=== PATIENT | male | born 1955 | race Caucasian/White ===

== ENCOUNTER 2020-01-27 08:58 | Day surgery (SDC) | payer MEDICARE, OTHER, SELFPAY ==
[2020-01-25 19:50] VITALS: BMI 32.8
--- NOTE | 2020-01-26 08:42 | P.CONAN_ITS ---
Documented by User: Katt Padilla 01/26/20 08:43 HPI - Anesthesia Eval Consult details Narrative: 64yo M for L inguinal hernia repair [facility], [facility] Past Medical History Medical History Arthritis Back pain GERD (gastroesophageal reflux disease) Hypertension Surgical History Surgical History History of right inguinal hernia repair (~2015) Social History Social History (Updated 01/27/20 @ 09:53 by Sara Rodriguez RN) Smoking Status: Never smoker Second Hand Smoke Exposure: No Use of substances other than those prescribed or required for medical reasons: No Advance Directives: No Advance Directives Information Provided: No Advance Directives on File: No Recently lost weight without trying: No Meds Allergies Allergy/AdvReac Type Severity Reaction Status Date / Time codeine [CODEINE] Allergy Intermediate FELT Verified 01/27/20 09:52 WEIRD Home Medications Medication Instructions Recorded Confirmed Type amlodipine-benazepril 1 cap PO DAILY 01/25/20 01/25/20 History celecoxib 1 cap PO DAILY 01/25/20 01/25/20 History lansoprazole [Prevacid] 15 mg PO DAILY 01/25/20 01/27/20 History minocycline 1 cap PO DAILY 01/25/20 01/25/20 History Exam Exam Date and Time: January 26, 2020 0842 Height,Weight and Vital Signs: Height 5 ft 11 in Weight 106.594 kg Assessment and Plan Assessment Anesthesia Assessment: Chart Reviewed Documented by User: Hafsa Dave 01/27/20 11:45 [facility] Past Medical History Medical History Arthritis Back pain GERD (gastroesophageal reflux disease) Hypertension Surgical History Surgical History History of right inguinal hernia repair (~2015) Social History Social History (Updated 01/27/20 @ 09:53 by Sara Rodriguez RN) Smoking Status: Never smoker Second Hand Smoke Exposure: No Use of substances other than those prescribed or required for medical reasons: No Advance Directives: No Advance Directives Information Provided: No Advance Directives on File: No Recently lost weight without trying: No Meds Allergies Allergy/AdvReac Type Severity Reaction Status Date / Time codeine [CODEINE] Allergy Intermediate FELT Verified 01/27/20 09:52 WEIRD Home Medications Medication Instructions Recorded Confirmed Type amlodipine-benazepril 1 cap PO DAILY 01/25/20 01/25/20 History celecoxib 1 cap PO DAILY 01/25/20 01/25/20 History lansoprazole [Prevacid] 15 mg PO DAILY 01/25/20 01/27/20 History minocycline 1 cap PO DAILY 01/25/20 01/25/20 History Exam Airway Mallampati Class: I (Top 3 teeth have caps) TM Dist: >3cm Neck ROM: Full Heart: RrR Lungs: CtA Bl Assessment and Plan Final Anesthetic Review NPO: Yes (Sip water with med) ASA Class: II Final Preanesthetic Review: Meds/Allgs Chart Reviewed and Consent Obtained/Reviewed Patient Risk: Intermediate Procedure Risk: Intermediate Anesthetic Plan Anesthetic Plan: MAC: Disposition: Standard PACU
[2020-01-27] VITALS (10 sets, daily range): BP systolic 116–144; BP diastolic 78–89; PULSE 63–82; RESP 16–20; TEMP 36.5–36.8; O2SAT 97–100
--- NOTE | 2020-01-27 11:41 | MHC.SHP ---
Pre-Procedural Eval Section A The patient is an INPATIENT: No Changes since office visit: Yes Patient answered all questions; No Cold of Flu in the past 2 weeks, No New Medical Problems and No Changes in Medication The History & Physical has been completed within 30 days and I have reviewed it.: Yes Section B Chief Complaint: Left Inguinal Hernia Allergies: Allergies Allergy/AdvReac Type Severity Reaction Status Date / Time codeine [CODEINE] Allergy Intermediate FELT Verified 01/27/20 09:52 WEIRD Plan Diagnosis/Plan: Unchanged Patient has been examined and remains a candidate for the planned procedure
[2020-01-27] MEDS: ceFAZolin Sodium/Dextrose,Iso 2 GM/50 ML PIGGYBACK IV (11:57)
--- NOTE | 2020-01-27 13:15 | P.BOP_ITS ---
Brief Operative Note Date of procedure: 01/27/20 <Emelyn Delvalle PA-C - Last Filed: 01/27/20 13:17> 01/27/20 <Edgardo Barrios MD - Last Filed: 01/27/20 13:26> Pre-op diagnosis: left inguinal hernia <Emelyn Delvalle PA-C - Last Filed: 01/27/20 13:17> Post-op diagnosis: same (direct) <Emelyn Delvalle PA-C - Last Filed: 01/27/20 13:17> Procedure: Repair of left inguinal hernia with mesh <Eemlyn Delvalle PA-C - Last Filed: 01/27/20 13:17> Implants: large PHS mesh <Emelyn Delvalle PA-C - Last Filed: 01/27/20 13:17> Surgeon: Edgardo Barrios MD <Emelyn Delvalle PA-C - Last Filed: 01/27/20 13:17> Anesthesia: MAC <Emelyn Delvalle PA-C - Last Filed: 01/27/20 13:17> Residue Furnace Operator: Emelyn Delvalle <Emelyn Delvalle PA-C - Last Filed: 01/27/20 13:17> Estimated blood loss (mL): 10 <Emelyn Delvalle PA-C - Last Filed: 01/27/20 13:17> Pathology: none sent <Emelyn Delvalle PA-C - Last Filed: 01/27/20 13:17> Condition: stable <KAMRAN Hill Last Filed: 01/27/20 13:17> Disposition: PACU <KAMRAN Hill Last Filed: 01/27/20 13:17>
[2020-01-27] MEDS: oxyCODONE HCl Immed Release 5 MG TABLET 10 MG PO (13:25)
--- NOTE | 2020-01-27 13:26 | W.PM.OPN ---
Operative Note Operative Note Narrative: Preoperative diagnosis: Left inguinal hernia Postoperative diagnosis: Same Procedure: Repair of left inguinal hernia with mesh Surgeon: Edgardo Barrios MD Program Director/Morning Show Host: NEFTALI Hill Anesthesia: Mac Indications for surgery: Patient is a 64-year-old male presenting with a reducible lump in the left groin which increases in size with Valsalva maneuvers. On examination the patient is found to have a left inguinal hernia which reduces with light pressure. Operative findings: Patient was found to have a direct left inguinal hernia with portions of bladder wall within the hernia sac. This was repaired using a large PHS mesh. Specimen: None Estimated blood loss: 10 mL Complications: None Procedure details: Patient was brought to the OR placed in a supine position. After administering light sedation the patient's abdomen was prepped with ChloraPrep and draped in a sterile fashion. A surgical time-out was called the consent confirmed. Patient received preoperative antibiotics. Local anesthesia consisting of 1% lidocaine with epinephrine plus 0.5% Sensorcaine plain was infiltrated above the left inguinal ligament. Incision was then made in oblique fashion over the left inguinal ligament. This was carried out through subcutaneous tissue past Lashaun's fashion up to the external oblique aponeurosis. Additional local was placed below the aponeurosis. External oblique aponeurosis was then incised with a scalpel and widened with Metzenbaum scissors. Spermatic cord was then dissected free from the surrounding inguinal canal. A large direct left inguinal hernia was identified which was densely adherent to the spermatic cord. Fibers of the cremasteric muscle were in the spermatic cord dissected. No indirect sac could be identified. The direct sac was then dissected free from the spermatic cord. Fibers of the internal oblique and transversalis aponeurosis were between clamps and preperitoneal space entered. The space was widened with an open Ray-Omero sponge. Portions of the bladder appeared to be within the hernia sac. This was dissected free. A large PHS mesh was then obtained. The circular underlay was placed into the preperitoneal space. The overlay was then secured to the pubic tubercle, conjoined tendon, and shelving edge of the inguinal ligament using interrupted 0 Polysorb sutures. A slit was made in the mesh to surround the spermatic cord at the internal ring. This was then secured to the shelving edge of the inguinal ligament using a 0 Polysorb suture. Wounds were then irrigated with saline solution and suctioned dry. External oblique aponeurosis was then closed using a running 2 0 Polysorb suture. Lashaun's fascia and subcutaneous tissue was reapproximated using interrupted 3 0 Polysorb sutures. Dermis was reapproximated using interrupted 3 0 Polysorb sutures. Skin was then closed using a running subcuticular 4 0 Polysorb suture. Steri-Strips 4 x 4 gauze and Tegaderm were then applied. The patient tolerated the procedure well. Sponge, instrument, and needle counts reported as correct. The patient was transferred to PACU in stable condition.
[2020-01-27] MEDS: fentaNYL citrate/PF 100 MCG/2 ML VIAL 50 MCG IVPUSH ×4 (13:28→13:59)
--- NOTE | 2020-01-27 14:56 | HO.POSTANES ---
Post Anesthesia Evaluation Post Anesthesia Evaluation Vital Signs: Vital Signs Temp Pulse Resp BP Pulse Ox 01/27/20 14:15 97.7 F 67 20 144/89 H 100 01/27/20 14:04 63 20 140/80 H 100 01/27/20 13:59 70 18 133/80 100 01/27/20 13:54 70 18 134/82 100 01/27/20 13:42 79 20 122/81 100 01/27/20 13:37 65 18 126/82 99 01/27/20 13:33 66 18 134/84 97 01/27/20 13:28 71 20 122/81 98 01/27/20 13:18 97.7 F 72 20 116/78 98 01/27/20 10:07 98.3 F 82 16 143/87 H 97 Anesthesia: Monitored Mental Status: Awake Pain Control: Satisfactory Nausea/Vomiting: None Hydration: Adequate Anesthesia-Related Issues: No Anes. Related Issues
--- NOTE | 2020-01-27 15:08 | PC.NURSE ---
initial IV fluid bag not scanned, pt received total of 1600ml LR intraop.
== END 2020-01-27 15:13 | disposition home or self-care (01) ==
PROVIDERS: Surgery; PCP Internal Medicine; Visit Provider Internal Medicine
PROC: (CPT 49505; principal; 2020-01-27 10:30)
DX: K40.90 Unilateral inguinal hernia, without obstruction or gangrene, not specified as recurrent (principal); I10 Essential (primary) hypertension; Z79.899 Other long term (current) drug therapy; Z88.8 Allergy status to other drugs, medicaments and biological substances
CPT/HCPCS: 49505; C1781; J0690; J2250; J3010

== ENCOUNTER → 2020-02-04 11:16 | Outpatient (BNVA) | payer MEDICARE, OTHER, SELFPAY | PROVIDERS: PCP Internal Medicine; Visit Provider Surgery | DX: Z48.815 Encounter for surgical aftercare following surgery on the digestive system (principal) | CPT/HCPCS: 99212 ==

== ENCOUNTER → 2020-03-01 10:53 | Outpatient (BNVA) | payer MEDICARE, OTHER, SELFPAY | PROVIDERS: PCP Internal Medicine; Referring Provider Internal Medicine; Visit Provider Surgery | DX: Z09 Encounter for follow-up examination after completed treatment for conditions other than malignant neoplasm (principal); Z87.19 Personal history of other diseases of the digestive system | CPT/HCPCS: 99212 ==

== ENCOUNTER 2020-03-27 08:00 | Outpatient (REF) | payer MEDICARE, OTHER, SELFPAY ==
[2020-03-27 08:28] LABS: MANUAL DIFF FLAG NO
[2020-03-27 08:30] LABS: Basophils Percent Auto 0.6 % (0-2); Eosinophils Absolute Auto 0.1 X10*3/uL (0.0-0.4); Hematocrit 44.9 % (42-52); Hemoglobin 15.2 g/dl (14.0-18.0); Imm Gran Abs Auto 0.02 X10*3/uL (0.00-0.03); Imm Gran Pct Auto 0.4 % (0.0-0.4); Lymphocytes Absolute Auto 1.1 X10*3/uL (1.2-4.9); Lymphocytes Percent Auto 22.8 % (20-40); Mean Corpuscular HGB Conc 33.9 g/dl (31.0-36.0); Mean Corpuscular Hemoglobin 30.4 pg (27.0-33.0); Mean Corpuscular Volume 89.8 fL (80-98); Mean Platelet Volume 9.6 fL (9.4-12.4); Monocytes Absolute Auto 0.5 X10*3/uL (0.1-1.2); Monocytes Percent Auto 9.8 % (2-11); Neutrophils Absolute Auto 3.2 X10*3/uL (2.0-8.3); Neutrophils Percent Auto 64.4 % (45-73); Platelet Count 196 X10*3/uL (160-400); Red Cell Distribution Width 12.7 % (11.0-16.0)
[2020-03-27 08:52] LABS: Glucose Urine UA NEG (NEG); Leukocyte Esterase Urine NEG (NEG); Nitrite Urine NEG (NEG); PH 5.5 (5.0-8.0); Specific Gravity - Urine <= 1.005 (1.005-1.025); Urine Blood TRACE (NEG); Urine Ketones NEG (NEG); Urine Protein NEG (NEG-TRACE)
[2020-03-27 08:53] LABS: Appearance Urine CLEAR; Color Urine STRAW
[2020-03-27 08:59] LABS: Alanine Aminotransferase 23 U/L (0-40); Albumin Level 4.1 g/dL (3.5-5.0); Alkaline Phosphatase 76 U/L (39-117); Aspartate Amino Transferase 22 U/L (5-37); Bilirubin Total 0.5 mg/dL (0.0-1.0); Blood Urea Nitrogen 17 mg/dL (9-16); Calcium 8.7 mg/dL (8.4-10.2); Cholesterol 182 mg/dL; Estimated Glomerular Filt Rate > 60; Glucose Fasting 91 mg/dL (60-99); HDL Cholesterol 53 mg/dL; LDL Cholesterol Calculated 113 mg/dl; Total Protein 6.8 g/dL (6.5-8.0); Triglycerides 82 mg/dL
[2020-03-27 09:01] LABS: RBC Urine 0 /HPF (0); WBC Urine 0 /HPF (0-4)
[2020-03-27 09:12] LABS: Anion Gap 10 (12-20); Carbon Dioxide 27 mmol/L (22-29); Chloride 103 mmol/L (96-108); Potassium 4.4 mmol/l (3.3-5.1); Sodium 136 mmol/L (135-145)
[2020-03-27 09:14] LABS: Prostate Specific Antigen 0.81 ng/mL (<0.05-4.0)
== END 2020-03-27 08:01 | disposition home or self-care (01) ==
LOC: HO.LAB 08:00
PROVIDERS: Visit Provider Internal Medicine
DX: E87.1 Hypo-osmolality and hyponatremia (principal); R79.9 Abnormal finding of blood chemistry, unspecified; R31.9 Hematuria, unspecified; I10 Essential (primary) hypertension
CPT/HCPCS: 36415; 80053; 80061; 81001; 84153; 85025

== ENCOUNTER → 2021-01-11 13:26 | Outpatient (BNVA) | payer MEDICARE, OTHER, SELFPAY | PROVIDERS: PCP Internal Medicine; Referring Provider Internal Medicine; Visit Provider Surgery | DX: K40.91 Unilateral inguinal hernia, without obstruction or gangrene, recurrent (principal) | CPT/HCPCS: 99212 ==

== ENCOUNTER 2021-02-07 06:08 | Day surgery (SDC) | payer MEDICARE, OTHER, SELFPAY ==
[2021-01-31 15:16] VITALS: BMI 33.7
--- NOTE | 2021-02-06 09:17 | HO.ANESPROP2 ---
Documented by User: Katt Padilla NP 02/06/21 09:22 HPI - Anesthesia Eval Consult details Narrative: 65yo M for Left Recurrent Inguinal Hernia Repair with Mesh s/p Left Inguinal Hernia with MAC 01/2020 [facility] Active Problems Active Problems: All Active Problems (Updated 01/11/21 @ 14:01 by Edgardo Barrios MD) Recurrent left inguinal hernia (Acute) History of right inguinal hernia repair (Acute ~2015) Past Medical History Medical History Arthritis Back pain GERD (gastroesophageal reflux disease) Hypertension Surgical History Surgical History History of left inguinal hernia repair History of right inguinal hernia repair (~2015) Social History Social History Second Hand Smoke Exposure: No Advance Directives on File: No Meds Allergies Allergy/AdvReac Type Severity Reaction Status Date / Time No Known Allergies Allergy Verified 02/07/21 06:18 Home Medications Medication Instructions Recorded Confirmed Last Taken Type amlodipine 5 mg-benazepril 20 mg 1 cap PO DAILY 01/25/20 03/01/20 Unknown History capsule celecoxib 200 mg capsule 1 cap PO DAILY 01/25/20 03/01/20 Unknown History lansoprazole 15 mg capsule,delayed 15 mg PO DAILY 01/25/20 03/01/20 02/07/21 05:00 History release (Prevacid) minocycline 100 mg capsule 1 cap PO DAILY 01/25/20 03/01/20 Unknown History Exam Exam Date and Time: February 06, 2021 0917 Height,Weight and Vital Signs: Height 5 ft 11 in Weight 109.769 kg Assessment and Plan Assessment Anesthesia Assessment: Chart Reviewed Documented by User: Jesus Brady MD 02/07/21 07:27 [facility] Past Medical History Medical History Arthritis Back pain GERD (gastroesophageal reflux disease) Hypertension Family History Family history of problems with anesthesia: No Surgical History Surgical History History of left inguinal hernia repair History of right inguinal hernia repair (~2015) History of Problems with Anesthesia: No Social History Social History Second Hand Smoke Exposure: No Advance Directives on File: No Meds Allergies Allergy/AdvReac Type Severity Reaction Status Date / Time No Known Allergies Allergy Verified 02/07/21 06:18 Home Medications Medication Instructions Recorded Confirmed Last Taken Type amlodipine 5 mg-benazepril 20 mg 1 cap PO DAILY 01/25/20 03/01/20 Unknown History capsule celecoxib 200 mg capsule 1 cap PO DAILY 01/25/20 03/01/20 Unknown History lansoprazole 15 mg capsule,delayed 15 mg PO DAILY 01/25/20 03/01/20 02/07/21 05:00 History release (Prevacid) minocycline 100 mg capsule 1 cap PO DAILY 01/25/20 03/01/20 Unknown History Exam Airway Mallampati Class: I TM Dist: >3cm Neck ROM: Full Loose/Missing/Broken Teeth: No Heart: ok Lungs: ok Assessment and Plan Final Anesthetic Review Family History of Problems with Anesthesia: No History of Problems with Anesthesia: No NPO: Yes ASA Class: II Final Preanesthetic Review: No Changes in Pt Med Stat, Meds/Allgs Chart Reviewed, Consent Obtained/Reviewed and Anes Risks/Benef Reviewed Patient Risk: Low Procedure Risk: Intermediate Anesthetic Plan Anesthetic Plan: GA and Agree w/ Assess. and Plan Disposition: Standard PACU
[2021-02-07] VITALS (10 sets, daily range): BP systolic 104–137; BP diastolic 62–84; PULSE 63–105; RESP 16–20; TEMP 36.7–36.9; O2SAT 95–99
[2021-02-07] MEDS: Lactated Ringers 1,000 ML 100 ML IVCONT (06:37)
--- NOTE | 2021-02-07 07:28 | MHC.SHP ---
Pre-Procedural Eval Section A Date of Service: 02/07/21 The patient is an INPATIENT: No Changes since office visit: Yes Patient answered all questions; No Cold of Flu in the past 2 weeks, No New Medical Problems and No Changes in Medication The History & Physical has been completed within 30 days and I have reviewed it.: Yes Section B Chief Complaint: Recurrent left inguinal hernia Allergies: Allergies Allergy/AdvReac Type Severity Reaction Status Date / Time No Known Allergies Allergy Verified 02/07/21 06:18 Plan Diagnosis/Plan: Unchanged I have reviewed the history and physical and performed a pertinent physical examination on my patient. No changes have occurred unless specified.
--- NOTE | 2021-02-07 08:58 | W.PM.OPN ---
Operative Note Operative Note Date of Service: 02/07/21 Narrative: Preoperative diagnosis: Recurrent left inguinal hernia Postoperative diagnosis: Same Procedure: Repair of recurrent left inguinal hernia Surgeon: Edgardo Barrios MD Field Administrator: Emelyn Delvalle PA-C Anesthesia: General LMA Indications for procedure: 65-year-old male patient with a previous history of left inguinal hernia repair presenting with a new palpable lump and pain in the left groin suggestive of a recurrent left inguinal hernia. Operative findings: Recurrent left inguinal hernia with mesh displacement from the upper fixation points. Specimen: None Estimated blood loss: 5 mL Complications: None Procedure details: Patient was brought to the OR placed in a supine position. After administering general anesthesia the patient's abdomen was prepped with ChloraPrep and draped in a sterile fashion. A surgical time-out was called the consent confirmed. Patient received preoperative antibiotics and Venodyne boots were in place. Local anesthesia consisting of 0.5% Sensorcaine plain was infiltrated over the left inguinal ligament. Incision was then made with scalpel carried out through subcutaneous tissue, past Lashaun's fashion up to the external oblique aponeurosis. Significant scar tissue was noted from his previous repair. The aponeurosis was infiltrated with local and incision made with a scalpel. This was then widened with the Metzenbaum scissors. The inguinal canal was then dissected sharply with Metzenbaum scissors. The mesh was identified and found to be disrupted from its upper fixation point. The mesh was dissected free from the surrounding cord contents. The cord was found intact. Upper fascia was identified and found to be intact as well. A 2nd flap polypropylene mesh was obtained. This was cut to size. The mesh was secured to the conjoined tendon using 2-0 Prolene sutures in an interrupted fashion. The 2nd mesh was then secured to the primary mesh again using interrupted 2 0 Prolene sutures. No other disruption of the mesh could be identified. The mesh was irrigated with saline solution and suctioned dry. Additional local was infiltrated at this time. External oblique aponeurosis was then closed using a running 2 0 Polysorb suture. Lashaun's fascia and dermis reapproximated using interrupted 3-0 Polysorb sutures. Skin was then closed using a running subcuticular 4-0 Polysorb suture. Sterile dressings consisting of Steri-Strips 4 x 4 gauze and Tegaderm were then applied. The patient tolerated the procedure well. Sponge, instrument, needle counts reported as correct. The patient was transferred to PACU in stable condition.
[2021-02-07] MEDS: oxyCODONE HCl Immed Release 5 MG TABLET 10 MG PO (09:28)
[2021-02-07] MEDS: fentaNYL citrate/PF 100 MCG/2 ML VIAL 50 MCG IVPUSH ×2 (09:30→09:35)
== END 2021-02-07 11:05 | disposition home or self-care (01) ==
PROVIDERS: PCP Internal Medicine; Visit Provider Surgery
PROC: (CPT 49520; principal; 2021-02-07 07:30)
DX: K40.91 Unilateral inguinal hernia, without obstruction or gangrene, recurrent (principal); K21.9 Gastro-esophageal reflux disease without esophagitis; I10 Essential (primary) hypertension; Z88.8 Allergy status to other drugs, medicaments and biological substances
CPT/HCPCS: 49520; C1781; J0461; J0690; J1100; J1885; J2250; J2405; J3010

== ENCOUNTER → 2021-02-15 11:06 | Outpatient (BNVA) | payer MEDICARE, OTHER, SELFPAY | PROVIDERS: PCP Internal Medicine; Referring Provider Internal Medicine; Visit Provider Surgery | DX: Z48.815 Encounter for surgical aftercare following surgery on the digestive system (principal); Z87.19 Personal history of other diseases of the digestive system | CPT/HCPCS: 99212 ==

== ENCOUNTER → 2021-03-20 09:33 | Outpatient (BNVA) | payer MEDICARE, OTHER, SELFPAY | PROVIDERS: PCP Internal Medicine; Referring Provider Internal Medicine; Visit Provider Surgery | DX: Z48.815 Encounter for surgical aftercare following surgery on the digestive system (principal); Z87.19 Personal history of other diseases of the digestive system | CPT/HCPCS: 99212 ==

== ENCOUNTER 2021-03-26 07:20 | Outpatient (REF) | payer MEDICARE, OTHER, SELFPAY ==
--- NOTE | ~2021-03-26 | CT_ITS ---
EXAMINATION: CT PELVIS WITHOUT CONTRAST CLINICAL INFORMATION: Inguinal hernia COMPARISON: None TECHNIQUE: Helical scanning was performed with submillimeter collimation through the pelvis. Sagittal and coronal multiplanar 2-D reconstructions were obtained. This CT examination was performed using dose optimization techniques as appropriate, variously including the following: *Automated exposure control *Adjustment of mA and/or kV according to patient size (this includes techniques or standardized protocols for targeted exams where dose is matched to indication/reason for exam; i.e. extremities or head) *Use of iterative reconstruction technique DLP: 873 mGy-cm FINDINGS: There is fat stranding in the left inguinal region and inferolateral aspect of the patient's pannus, which extends to the skin surface in a linear fashion. It is unclear whether this is postsurgical or not. Along this band of fat stranding is a flat, discoid-shaped fluid collection, measuring 4.7 x 3.1 x 1.2 cm, contiguous with the superficial investing fascia of the inguinal canal. There is mild fat stranding within the left inguinal canal extending to the deep inguinal ring.. Fat is contained within this indirect inguinal hernia on the left. A knuckle of the sigmoid colon partially extends into the deep inguinal ring on the left, without associated obstruction or inflammation of the colon. Right abdominal region is unremarkable. No additional hernias. Imaged gastrointestinal tract unremarkable. Normal appendix. Mild prostatomegaly. Seminal vesicles are unremarkable. Bladder is unremarkable. No acute or suspicious osseous abnormalities. Endplate osteophytes present at L5-S1. Mild facet arthropathy L5-S1. CT/CT pelvis wo con IMPRESSION: There is a fat-containing indirect inguinal hernia on the left with mild fat stranding and fluid within the proximal aspect of the left inguinal canal. Also, a knuckle of the sigmoid colon protrudes partially into the deep inguinal ring on the left. Superficial to the left inguinal canal, within subcutaneous fat is a discoid-shaped fluid collection measuring 4. 7 x 3.1 x 1.2 cm, which contacts the underlying fascia, and extends towards the skin surface, possibly a postoperative seroma.
== END 2021-03-26 07:21 | disposition home or self-care (01) ==
LOC: HO.CT 07:20
PROVIDERS: PCP Internal Medicine; Visit Provider Surgery
DX: K40.91 Unilateral inguinal hernia, without obstruction or gangrene, recurrent (principal)
CPT/HCPCS: 72192

== ENCOUNTER → 2021-04-03 09:36 | Outpatient (BNVA) | payer MEDICARE, OTHER, SELFPAY | PROVIDERS: PCP Internal Medicine; Referring Provider Internal Medicine; Visit Provider Surgery | DX: K40.91 Unilateral inguinal hernia, without obstruction or gangrene, recurrent (principal) | CPT/HCPCS: 99212 ==

== ENCOUNTER 2021-04-10 10:53 | Outpatient (REF) | payer MEDICARE, OTHER, SELFPAY ==
[2021-04-10 10:56] LABS: MANUAL DIFF FLAG NO
[2021-04-10 11:07] LABS: Appearance Urine CLEAR; Color Urine YELLOW; Glucose Urine UA NEG (NEG); Leukocyte Esterase Urine NEG (NEG); Nitrite Urine NEG (NEG); Specific Gravity - Urine <= 1.005 (1.005-1.025); Urine Blood TRACE (NEG); Urine Ketones NEG (NEG); Urine Protein NEG (NEG-TRACE)
[2021-04-10 11:24] LABS: Basophils Percent Auto 0.6 % (0-2); Eosinophils Absolute Auto 0.2 X10*3/uL (0.0-0.4); Hematocrit 45.9 % (42.0-52.0); Hemoglobin 15.2 g/dl (14.0-18.0); Imm Gran Abs Auto 0.02 X10*3/uL (0.00-0.03); Imm Gran Pct Auto 0.4 % (0.0-0.4); Lymphocytes Percent Auto 19.1 % (20-40); Mean Corpuscular HGB Conc 33.1 g/dl (31.0-36.0); Mean Corpuscular Hemoglobin 29.7 pg (27.0-33.0); Mean Corpuscular Volume 89.6 fL (80.0-98.0); Mean Platelet Volume 9.7 fL (9.4-12.4); Monocytes Absolute Auto 0.6 X10*3/uL (0.1-1.2); Monocytes Percent Auto 11.2 % (2-11); Neutrophils Absolute Auto 3.5 x10*3/uL (2.0-8.3); Neutrophils Percent Auto 65.7 % (45-73); Platelet Count 187 X10*3/uL (160-400); Red Blood Count 5.12 X10*6/uL (4.60-5.80); White Blood Count 5.3 X10*3/uL (4.8-10.8)
[2021-04-10 11:25] LABS: RBC Urine 0-2 /HPF (0); WBC Urine 0 /HPF (0-4)
[2021-04-10 12:06] LABS: Alanine Aminotransferase 25 U/L (0-40); Albumin Level 3.9 g/dL (3.5-5.0); Alkaline Phosphatase 81 U/L (39-117); Anion Gap 9 (12-20); Aspartate Amino Transferase 17 U/L (5-37); Bilirubin Total 0.3 mg/dL (0.0-1.0); Blood Urea Nitrogen 18 mg/dL (9-16); Calcium 8.9 mg/dL (8.4-10.2); Carbon Dioxide 28 mmol/L (22-29); Chloride 104 mmol/L (96-108); Cholesterol 189 mg/dL; Estimated Glomerular Filt Rate > 60; Glucose Fasting 91 mg/dL (60-99); HDL Cholesterol 48 mg/dL; LDL Cholesterol Calculated 121 mg/dl; Potassium 4.3 mmol/L (3.3-5.1); Sodium 137 mmol/L (135-145); Total Protein 6.8 g/dL (6.5-8.0); Triglycerides 100 mg/dL
[2021-04-10 12:50] LABS: PSA,Total (Free>4and<10) 0.83 ng/mL (0.00-4.00)
== END 2021-04-10 10:54 | disposition home or self-care (01) ==
LOC: HO.LNP 10:53
PROVIDERS: Visit Provider Internal Medicine
DX: Z12.5 Encounter for screening for malignant neoplasm of prostate (principal); I10 Essential (primary) hypertension; R31.9 Hematuria, unspecified; R79.9 Abnormal finding of blood chemistry, unspecified; E87.1 Hypo-osmolality and hyponatremia
CPT/HCPCS: 80053; 80061; 81001; 81003; 84153; 85025

== ENCOUNTER → 2021-06-07 14:24 | Outpatient (BNVA) | payer MEDICARE, OTHER, SELFPAY | PROVIDERS: PCP Internal Medicine; Referring Provider Internal Medicine; Visit Provider Surgery | DX: K64.5 Perianal venous thrombosis (principal) | CPT/HCPCS: 99202 ==

== ENCOUNTER 2022-03-11 11:03 | Outpatient (REF) | payer MEDICARE, OTHER, SELFPAY ==
[2022-03-11 11:08] LABS: MANUAL DIFF FLAG NO
[2022-03-11 11:51] LABS: Appearance Urine Clear; Color Urine Yellow; Glucose Urine UA Negative (Negative); Leukocyte Esterase Urine Negative (Negative); Nitrite Urine Negative (Negative); Specific Gravity - Urine 1.015 (1.005-1.025); UMIC TRIGGER UA YES; Urine Blood Trace (Negative); Urine Ketones Negative (Negative); Urine Protein Negative (Neg-Trace)
[2022-03-11 11:55] LABS: Basophils Percent Auto 0.7 % (0-2); Eosinophils Absolute Auto 0.2 X10*3/uL (0.0-0.4); Hematocrit 45.4 % (42.0-52.0); Hemoglobin 14.8 g/dl (14.0-18.0); Imm Gran Abs Auto 0.03 X10*3/uL (0.00-0.03); Imm Gran Pct Auto 0.5 % (0.0-0.4); Lymphocytes Absolute Auto 1.3 X10*3/uL (1.2-4.9); Lymphocytes Percent Auto 22.2 % (20-40); Mean Corpuscular HGB Conc 32.6 g/dl (31.0-36.0); Mean Corpuscular Hemoglobin 29.5 pg (27.0-33.0); Mean Corpuscular Volume 90.6 fL (80.0-98.0); Mean Platelet Volume 9.9 fL (9.4-12.4); Monocytes Absolute Auto 0.6 X10*3/uL (0.1-1.2); Monocytes Percent Auto 10.2 % (2-11); Neutrophils Absolute Auto 3.8 x10*3/uL (2.0-8.3); Neutrophils Percent Auto 63.4 % (45-73); Platelet Count 189 X10*3/uL (160-400); Red Blood Count 5.01 X10*6/uL (4.60-5.80); Red Cell Distribution Width 12.8 % (11.0-16.0)
[2022-03-11 11:57] LABS: Bacteria Urine None Seen (None Seen); Hyaline Casts Urine 0-2 /LPF (0-2); RBC Urine 0-2 /HPF (0-2); Squamous Epithelial Cell Urine 0-2 /HPF (0-2); WBC Urine 0-5 /HPF (0-5)
[2022-03-11 12:48] LABS: Alanine Aminotransferase 23 U/L (0-40); Alkaline Phosphatase 73 U/L (39-117); Anion Gap 10 (12-20); Aspartate Amino Transferase 19 U/L (5-37); Bilirubin Total 0.5 mg/dL (0.0-1.0); Blood Urea Nitrogen 21 mg/dL (9-16); Carbon Dioxide 28 mmol/L (22-29); Chloride 106 mmol/L (96-108); Cholesterol 196 mg/dL; Estimated Glomerular Filt Rate > 60; Glucose Fasting 97 mg/dL (60-99); HDL Cholesterol 51 mg/dL; LDL Cholesterol Calculated 126 mg/dl; PSA,Total (Free>4and<10) 0.92 ng/mL (0.00-4.00); Potassium 4.8 mmol/L (3.3-5.1); Sodium 139 mmol/L (135-145); Total Protein 6.5 g/dL (6.5-8.0); Triglycerides 95 mg/dL
== END 2022-03-11 11:04 | disposition home or self-care (01) ==
LOC: HO.LNP 11:03
PROVIDERS: Visit Provider Internal Medicine
DX: Z12.5 Encounter for screening for malignant neoplasm of prostate (principal); I10 Essential (primary) hypertension; R31.9 Hematuria, unspecified
CPT/HCPCS: 80053; 80061; 81001; 84153; 85025

== ENCOUNTER 2023-03-14 10:28 | Outpatient (REF) | payer MEDICARE, OTHER, SELFPAY ==
[2023-03-14 10:31] LABS: MANUAL DIFF FLAG NO
[2023-03-14 11:06] LABS: Appearance Urine Clear; Color Urine Yellow; Glucose Urine UA Negative (Negative); Leukocyte Esterase Urine Negative (Negative); Nitrite Urine Negative (Negative); Specific Gravity - Urine <= 1.005 (1.005-1.025); UMIC TRIGGER UACC YES; Urine Blood Trace (Negative); Urine Ketones Negative (Negative); Urine Protein Negative (Neg-Trace)
[2023-03-14 11:11] LABS: Basophils Percent Auto 0.7 % (0-2); Eosinophils Absolute Auto 0.2 X10*3/uL (0.0-0.4); Eosinophils Percent Auto 2.9 % (0-4); Hematocrit 45.3 % (42.0-52.0); Hemoglobin 14.8 g/dl (14.0-18.0); Imm Gran Abs Auto 0.01 X10*3/uL (0.00-0.03); Imm Gran Pct Auto 0.2 % (0.0-0.4); Lymphocytes Absolute Auto 1.4 X10*3/uL (1.2-4.9); Lymphocytes Percent Auto 23.6 % (20-40); Mean Corpuscular HGB Conc 32.7 g/dl (31.0-36.0); Mean Corpuscular Hemoglobin 29.6 pg (27.0-33.0); Mean Corpuscular Volume 90.6 fL (80.0-98.0); Monocytes Absolute Auto 0.6 X10*3/uL (0.1-1.2); Monocytes Percent Auto 10.6 % (2-11); Neutrophils Absolute Auto 3.6 x10*3/uL (2.0-8.3); Platelet Count 202 X10*3/uL (160-400); Red Cell Distribution Width 12.8 % (11.0-16.0); White Blood Count 5.8 X10*3/uL (4.8-10.8)
[2023-03-14 11:13] LABS: Bacteria Urine None Seen (None Seen); Hyaline Casts Urine 0-2 /LPF (0-2); RBC Urine 0-2 /HPF (0-2); Squamous Epithelial Cell Urine 0-2 /HPF (0-2); WBC Urine 0-5 /HPF (0-5)
[2023-03-14 11:18] LABS: Alanine Aminotransferase 24 U/L (0-40); Albumin Level 3.9 g/dL (3.5-5.0); Alkaline Phosphatase 72 U/L (39-117); Anion Gap 8 (12-20); Aspartate Amino Transferase 24 U/L (5-37); Bilirubin Total 0.4 mg/dL (0.0-1.0); Blood Urea Nitrogen 20 mg/dL (9-16); Calcium 9.2 mg/dL (8.4-10.2); Carbon Dioxide 28 mmol/L (22-29); Chloride 105 mmol/L (96-108); Cholesterol 174 mg/dL (<200); Estimated Glomerular Filt Rate > 60; Glucose Fasting 95 mg/dL (60-99); HDL Cholesterol 50 mg/dL (>40); LDL Cholesterol Calculated 105 mg/dL (<100); Potassium 4.3 mmol/L (3.3-5.1); Sodium 137 mmol/L (135-145); Total Protein 6.8 g/dL (6.5-8.0); Triglycerides 95 mg/dL (<150)
[2023-03-14 11:30] LABS: PSA,Total (Free>4and<10) 0.96 ng/mL (0.00-4.00)
== END 2023-03-14 10:29 | disposition home or self-care (01) ==
LOC: HO.LNP 10:28
PROVIDERS: Visit Provider Internal Medicine
DX: Z12.5 Encounter for screening for malignant neoplasm of prostate (principal); R31.9 Hematuria, unspecified; I10 Essential (primary) hypertension
CPT/HCPCS: 80053; 80061; 81001; 84153; 85025

== ENCOUNTER 2024-03-25 10:53 | Outpatient (REF) | payer MEDICARE, OTHER, SELFPAY ==
[2024-03-25 10:56] LABS: MANUAL DIFF FLAG NO
--- OUTSIDE RECORDS SUMMARY | 2024-03-25 10:56 | XMS_ITS ---
Author Organization Yaw Delgadillo MD Address [address] [place] [phone] Care Team Providers Care Project Crew Worker Name Role Phone LeonaGenetn Primary Care Provider REASON FOR VISIT ears blocked, sinus congested Encounters Encounter Location Date Provider Diagnosis Yaw Delgadillo MD [address] [place] [phone] 12/23/2023 Yaw Delgadillo PLAN OF TREATMENT Next Appt Details Provider Name:Yaw Roque ier, 04/01/2024 01:00:00 PM, [address], [address], [place], [place], [phone],
--- OUTSIDE RECORDS SUMMARY | 2024-03-25 10:56 | XMS_ITS | Patient Health Record ---
Author Organization Yaw Delgadillo MD Address [address] [place] [phone] Care Team Providers Care Tile Conduit Layer Name Role Phone Yaw Delgadillo Primary Care Provider [phone] ALLERGIES No Known Allergies REASON FOR REFERRAL No Information MEDICATIONS Medication SIG (Take, Route, Frequency, Duration) Notes Start Date End Date Status Minocycline HCl 100 MG TAKE 1 TABLET BY MOUTH EVERY DAY FOR 90 DAYS for 90 Active Celecoxib 200 MG take 1 capsule by mo uth every day with food for 90 days Orally Once a day for 90 days Active Lansoprazole 15 MG TAKE 1 CAPSULE BY MO UTH EVERY DAY FOR 90 DAYS for 90 Active Amoxicillin-Pot Clavulanate 875-125 MG 1 tablet Orally every 12 hrs for 3 day(s) 11/28/2023 Active Tamsulosin HCl 0.4 MG TAKE 1 CAPSULE BY MOUTH EVERY DAY FOR 30 DAYS for 90 Active Hydrocortisone Roge-Pramoxine 2.5-1 % 1 application as needed Externally one times a day for 30 days 04/17/2021 Active amLODIPine Besy-Benazepril HCl 5-20 MG take 1 capsule by mouth every day for 90 days Orally daily for 90 days Active IMMUNIZATIONS Vaccine Route Administration Date Status Comme nts Fluarix Quadrivalent Unknown [facility] (Pnemovax[facility] IM Intramuscular 04/01/2017 Administered TDaP IM Intramuscular 04/12/2017 [facility] [place]. Fluarix Quadrivalent Unknown 02/09/2018 [facility]2019 [facility] 02/08/2019 Administered pt was given the vaccine at [facility] in [place] PPSV23 (Pnemovax) IM Intramuscular 04/10/2021 Administered SARS-COV-2 Pfizer Unknown 06/11/2020 Administered SARS-COV-2 Pfizer Unknown 07/02/2020 Administered SARS-COV-2 Pfizer Unknown 01/05/2021 Administered Fluarix Quadrivalent Unknown 01/23/2021 Administered Influenza High Dose Unknown 01/31/2022 [facility] SOCIAL HISTORY Tobacco Use: Social History Observation Description Date Details (start date - stop date) Former Smoker NA - NA Sex Assigned At : Social History Observation Description Sex Assigned At Unknown Tobacco Use/Smoking Question Answer Notes Patient is a former smoker How long has it been since y ou last smoked? > 10 years Additional Findings: Tobacco Non-User Fo rmer smoker, currently using no form of tobacco Alcohol Screen Question Answer Notes Did you have a drink containing alcohol in the p ast year? No Points 0 Interpretation Negative PROBLEMS Problem Type ICD Code Onset Dates Problem Status W/U Status Risk SNOMED Code Notes Problem Unilateral inguinal hernia without obstruction or gangrene, recurrence not specified (K40.90) Active confirmed 84159056 Problem Hematuria (R31.9) Active confirmed 3443 6003 Problem Essential hypertension (I10) Active confirmed 11333008 Problem Reflux esophagitis (K21.00) Active confirmed 758285136 Problem Lumbar disc disease (M51.9) Active confirmed 608297602 Problem Low back pain (M54.5) Active confirmed 968998863 Problem Prostatism (N40.0) Active confirmed 81818713 VITAL SIGNS Height 70 in 11/28/2023 weight is 235 B P not taken today , no temp Encounters Encounter Location Date Provider Diagnosis Yaw Delgadillo MD [address] [place] [phone] 03/25/2024 Yaw Delgadillo Hematuria R31.9 ; Prostatism N40.0 and Essential hypertension I10 Yaw Delgadillo MD [address] [place] [phone] 12/23/2023 Yaw Delgadillo MD [address] [place] [address] Drive [address] [place] [id number] 11/28/2023 Yaw Delgadillo Acute maxillary sinusitis, recurrence not specified J01.00 ASSESSMENTS Encounter Date Diagnosis Assessment Notes Treatment Notes Treatment Clinical Notes 03/25/2024 Hematuria (ICD-10 - R31.9) 11/28/2023 Acute maxillary sinusitis, recurrence not specified (ICD-10 - J01.00) patient verbalized medication and directions for use 03/25/2024 Prostatism (ICD-10 - N40.0) 03/25/2024 Essential hypertension (ICD-10 - I10) PLAN OF TREATMENT Pending Test Test Name Order Date Electrocardiogram (EKG) 04/04/2016 Electrocardiogram (EKG) 03/27/2018 Electrocardiogram (EKG) 04/01/2019 Complete Blood Count Auto Diff 4 Comprehensive [place]. Panel Fast 4 Lipid Panel 03/25/2024 PSA,Total (Free>4and<10) 03/25/2024 UA ClnCatch+Micro w/rflx Cult 03/25/2024 Next Appt Details Provider Name:Yaw Roque ier, 04/01/2024 01:00:00 PM, [address] [facility], Suite [facility], [place], [place], [phone], Insurance Providers Payer Name Payer Address Payer Phone Subscriber Number Group Number Insured Name Patient Relationship to Insured Coverage Start Date Coverage End Date [employer] [address] [place] [address] [id number] Omer Lay Self - patient is the insured [facility] [address] [place] [phone] [id number] Omer Lay Self - patient is the insured MEDICAL (GENERAL) HISTORY Medical History History ICD Code discussed colonoscopy and refuses 2017, pt refused to do cologuard 03/2019 has trace hematuria since 2010 Surgical History Surgery Date(Month/Year) Repair of rt inguinal hernia with mesh ( Dr. Barrios) 03/2016
--- OUTSIDE RECORDS SUMMARY | 2024-03-25 10:56 | XMS_ITS ---
Author Organization Yaw Delgadillo MD Address [address] [place] [phone] Care Team Providers Care Dental Equipment Mechanic Name Role Phone Yaw Delgadillo Primary Care Provider ALLERGIES No Known Allergies REASON FOR VISIT sinus infection yellow mucus, c/o cannot smell or taste congestion x 1 month DId not test for Covid, Video [phone], [facility] [place] [phone] MEDICATIONS Medication SIG (Take, Route, Frequency, Duration) Notes Start Date End Date Status Celecoxib 200 MG take 1 capsule by [facility] every day with food for 90 days Orally Once a day for 90 days Active Amoxicillin-Pot Clavulanate 875-125 MG 1 tablet Orally every 12 hrs for 3 day(s) 11/28/2023 Active Tamsulosin HCl 0.4 MG TAKE 1 CAPSULE BY MOUTH EVERY DAY FOR 30 DAYS for 90 Active Lansoprazole 15 MG take [address] [facility] daily Orally Once a day for 90 Active amLODIPine Besy-Benazepril HCl 5-20 MG take 1 capsule by mouth every day for 90 days Orally daily for 90 days Active Hydrocortisone Roge-Pramoxine 2.5-1 % 1 application as needed Externally one times a day for 30 days 04/17/2021 Active Minocycline HCl 100 MG 1 tablet Orally o nce a day for 90 days Active VITAL SIGNS Height 70 in 11/28/2023 weight is 235 BP not taken t wojciech , no temp Encounters Encounter Location Date Provider Diagnosis Yaw Delgadillo MD [address] [place] [address] [place] [phone] 11/28/2023 Yaw Delgadillo Acute maxillary sinusitis, recurrence not specified J01.00 ASSESSMENTS Encounter Date Diagnosis Assessment Notes Treatment Notes Treatment Clinical Notes 11/28/2023 Acute maxillary sinusitis, recurrence not specified (ICD-10 - J01.00) patient verbalized medication and directions for use PLAN OF TREATMENT Medication Medication Name Sig Start Date Stop Date Notes Amoxicillin-Pot Clavulanate 875-125 MG 1 tablet Orally every 12 hrs for 3 day(s) 11/28/2023 Treatment Notes Assessment Notes Acute maxillary sinusitis, r ecurrence not specified patient verbalized medication and directions for use Next Appt Details Provider Name:Yaw rudd, 04/01/2024 01:00:00 PM, [address] [place] [address], [place] [address], [place], [place], [phone], History and Physical Notes * HPI (History of Present Illness) Category Sub-Category Detail Notes Symptom(s) Telehealth Location of prov ider rendering services:: [address] [place] [address], Suite [facility] Location of patient:: other (please spec cuco) [facility] Patient identification confi rmed using:: Name, , SSN, Insurance information Telehealth method:: Telephone only. Camila ent not visible to care provider. Consent:: Patient verbally c onsented to treatment, Patient verbally consented to billing insurance company, Patient informed of any privacy concerns related to method of visit Total time spend talking with patient (m inutes): 12
--- OUTSIDE RECORDS SUMMARY | 2024-03-25 10:56 | XMS_ITS ---
Author Organization Yaw Delgadillo MD Address [address] [place] [phone] Care Team Providers Care Clerical Transcriber Name Role Phone Yaw Delgadillo Primary Care Provider [phone] REASON FOR VISIT FASTING LABS Encounters Encounter Location Date Provider Diagnosis Yaw Delgadillo MD [address] [place] [phone] 03/25/2024 Yaw Delgadillo Hematuria R31.9 ; Prostatism N40.0 and Essential hypertension I10 ASSESSMENTS Encounter Date Diagnosis Assessment Notes Treatment Notes Treatment Clinical Notes 03/25/2024 Hematuria (ICD-10 - R31.9) 03/25/2024 Prostatism (ICD-10 - N40.0) 03/25/2024 Essential hypertension (ICD-10 - I10) PLAN OF TREATMENT Pending Test Test Name Order Date Complete Blood Count Auto Diff 4 Comprehensive [place]. Panel Fast 4 Lipid Panel 03/25/2024 PSA,Total (Free>4and<10) 03/25/2024 UA ClnCatch+Micro w/rflx Cult 03/25/2024 Next Appt Details Provider Name:Yaw rudd, 04/01/2024 01:00:00 PM, [address] [place] [address], [address], [place], [place], [phone],
--- OUTSIDE RECORDS SUMMARY | 2024-03-25 10:56 | XMS_ITS | Patient Health Record ---
Author Organization [facility] Leo alfred TaylorMando Address [address] [place] [address] Care Team Providers Care Crop Specialist Name Role Phone Yaw Delgadillo MD Primary Care Provider Fco Montes De Oca Unavailable [phone] Allergies No Known Allergies Reason For Referral No Information Medications Medication SIG (Take, Route, Frequency, Duration) Notes Start Date End Date Status Lansoprazole 15 MG 1 capsule Orally Once a day Active Minocycline HCl 100 MG 1 tablet Orally e very 12 hrs Active amLODIPine Besylate 5 MG 1 tablet Orally Once a day Active CeleBREX 100 MG 1 capsule with food Orally Once a day for 30 day(s) Active Immunizations Vaccine Route Administration Date Status Commjackson nts COVID-19 Pfizer BioNTech Vaccine Unknown 01/05/2021 Administered 1st 06/11/20, 2nd 07/02/20 Social History Tobacco Use: Social History Observation Description Date Details (start date - stop date) Former Smoker NA - NA Tobacco Use/Smoking Question Answer Notes Are you a: former smoker How long has it been since you last smoked? < 1 month Additional Findings: Tobacco Non-User Current no n-smoker Tobacco use other than smoking: Question Answer Notes Are you an other tobacco user? No Problems Problem Type SNOMED Code ICD Code Onset Dates Problem Status W/U Status Risk Notes Problem Localized, primary osteoarthritis of the ankle and/or foot (477677243) Primary osteoarthrit is, right ankle and foot (M19.071) Active confirmed Problem Localized, primary osteoarthritis of the ankle and/or foot (569644868) Primary osteoarthrit is, left ankle and foot (M19.072) Active confirmed Problem Acquired hammer toe of right foot (7957937982264466) Other hammer toe(s) (acquired), right foot (M20.41) Active confirmed Problem Acquired hammer toe of left foot (9033538141330503) Other hammer toe(s) (acquired), left foot (M20.42) Active confirmed Plan Of Treatment Pending Test Test Name Order Date X ray : Foot, left 2V 08/25/2017 X ray : Foot, right 2V 08/25/2017 X ray : Foot, right 3V 05/08/2021 24343- Nail Unit Biopsy 08/25/2017 Insurance Providers Payer Name Payer Address Payer Phone Subscriber Number Group Number Insured Name Patient Relationship to Insured Coverage Start Date Coverage End Date Medicare National Govt [facility] [facility] [address] [place] [address] [id number] Atif Omer Self - patient is the insured [employer]) [address] [place] [address] [id number] Atif Aziza Spouse - patient is the spouse of the insured Medical (General) History Medical History History ICD Code Arthritis Back,Hip,and Knee pain Broken bones High blood pressure Measles Chicken pox Numbness Reflux ( GERD) Warts Surgical History Surgery Date(Month/Year) hernia, right side 03/14/16 hernia, left side 02/27/20, 02/07/21, Hospitalization History Reason Date(Month/Year) Hernia 02/2021
[2024-03-25 11:22] LABS: Appearance Urine Clear; Color Urine Yellow; Glucose Urine UA Negative (Negative); Leukocyte Esterase Urine Negative (Negative); Nitrite Urine Negative (Negative); PH 5.5 (5.0-9.0); Specific Gravity - Urine <= 1.005 (1.005-1.025); Urine Blood Negative (Negative); Urine Ketones Negative (Negative); Urine Protein Negative (Neg-Trace)
[2024-03-25 11:24] LABS: Basophils Percent Auto 0.7 % (0-2); Eosinophils Absolute Auto 0.2 X10*3/uL (0.0-0.4); Eosinophils Percent Auto 3.4 % (0-4); Hematocrit 46.4 % (42.0-52.0); Hemoglobin 15.5 g/dl (14.0-18.0); Imm Gran Abs Auto 0.02 X10*3/uL (0.00-0.03); Imm Gran Pct Auto 0.4 % (0.0-0.4); Lymphocytes Absolute Auto 1.4 X10*3/uL (1.2-4.9); Lymphocytes Percent Auto 24.9 % (20-40); Mean Corpuscular HGB Conc 33.4 g/dl (31.0-36.0); Mean Corpuscular Volume 89.9 fL (80.0-98.0); Monocytes Absolute Auto 0.6 X10*3/uL (0.1-1.2); Monocytes Percent Auto 11.1 % (2-11); Neutrophils Absolute Auto 3.3 x10*3/uL (2.0-8.3); Neutrophils Percent Auto 59.5 % (45-73); Platelet Count 185 X10*3/uL (160-400); Red Blood Count 5.16 X10*6/uL (4.60-5.80); Red Cell Distribution Width 12.6 % (11.0-16.0); White Blood Count 5.5 X10*3/uL (4.8-10.8)
[2024-03-25 11:25] LABS: Bacteria Urine None Seen (None Seen); Hyaline Casts Urine 0-2 /LPF (0-2); RBC Urine 0-2 /HPF (0-2); Squamous Epithelial Cell Urine 0-2 /HPF (0-2); WBC Urine 0-5 /HPF (0-5)
[2024-03-25 11:34] LABS: Alanine Aminotransferase 30 U/L (0-40); Alkaline Phosphatase 73 U/L (39-117); Anion Gap 10 (12-20); Aspartate Amino Transferase 26 U/L (5-37); Bilirubin Total 0.5 mg/dL (0.0-1.0); Blood Urea Nitrogen 20 mg/dL (9-16); Calcium 8.9 mg/dL (8.4-10.2); Carbon Dioxide 27 mmol/L (22-29); Chloride 107 mmol/L (96-108); Cholesterol 182 mg/dL (<200); Estimated Glomerular Filt Rate > 60; Glucose Fasting 95 mg/dL (60-99); HDL Cholesterol 50 mg/dL (>40); LDL Cholesterol Calculated 113 mg/dL (<100); Potassium 4.6 mmol/L (3.3-5.1); Sodium 139 mmol/L (135-145); Total Protein 7.1 g/dL (6.5-8.0); Triglycerides 99 mg/dL (<150)
[2024-03-25 11:51] LABS: PSA,Total (Free>4and<10) 0.89 ng/mL (0.00-4.00)
== END 2024-03-25 10:54 | disposition home or self-care (01) ==
LOC: HO.LNP 10:53
PROVIDERS: Visit Provider Internal Medicine
DX: R31.9 Hematuria, unspecified (principal); N40.0 Benign prostatic hyperplasia without lower urinary tract symptoms; I10 Essential (primary) hypertension; Z12.5 Encounter for screening for malignant neoplasm of prostate
CPT/HCPCS: 80053; 80061; 81001; 84153; 85025

== ENCOUNTER 2024-05-31 16:09 | Outpatient (REF) | payer MEDICARE, OTHER, SELFPAY ==
--- NOTE | ~2024-05-31 | CT_ITS ---
CLINICAL HISTORY: POLYP OF NASAL CAVITY CT sinus without IV contrast Comparison: None Findings: The paranasal sinuses are well developed. Mucoperiosteal thickening and small polyp along the roof of the right maxillary sinus No air-fluid levels. Ostiomeatal units widely patent. Sphenoethmoid, and frontal recesses are patent. No frank bullosa. No Madhavi cells. Nasal septum is minimally deviated to the right The planum sphenoidale, cribriform plate and the orbital almeida are intact. The orbital contents are unremarkable. The visualized mastoid air cells showed no effusion. Symmetric fat-containing parapharyngeal spaces. The limited view the intracranial contents are unremarkable. Temporomandibular joints are congruent. Impression: 1. Minimal mucoperiosteal thickening and small polyp roof of the right maxillary sinus. Minimal mucoperiosteal thickening of the ethmoid air cells. Remaining paranasal sinuses are clear. 2. Ostiomeatal complexes are patent. This document has been electronically signed by: Casye Aburto MD on 06/01/2024 13:02:48
--- OUTSIDE RECORDS SUMMARY | 2024-05-31 18:16 | XMS_ITS | Patient Health Record ---
Author Organization Yaw Delgadillo MD Address [address] [place] [phone] Care Team Providers Care Scrap Bunch Maker Name Role Phone Yaw Delgadillo Primary Care Provider [phone] Allergies No Known Allergies Results Component Value Reference Range Notes Complete Blood Count Auto Di ff Reviewed date:03/25/2024 12:24:38 PM Interpretation: Performing Lab:[facility], [address] [place] [phone] Notes/Report: White Blood Count 5.5 4.8-10.8 X10*3/uL [...] NRBC Abs Auto 0.000 0.0-0.012 X10*3/uL Comprehensive [place]. Panel Fa st Reviewed date:03/25/2024 12:26:02 PM Interpretation: Performing Lab:[facility], [address] [place] [phone] Notes/Report: Sodium 139 135-145 mmol/L Potassium 4.6 [...] Panel Reviewed date:03/25/2024 12:19:03 PM Interpretation: Performing Lab:[address] [phone] Notes/Report: Triglycerides 99 <150 mg/dL Desirable Triglyceride: [...] (Free>4and<10) Reviewed date:03/25/2024 12:17:56 PM Interpretation: Performing Lab:[address] [phone] Notes/Report: PSA,Total (Free>4and<10) 0.89 0.00-4.00 ng/mL A [...] between 4.0 and 10.0 ng/mL. PSA methodology: WappZappnity i Chemiluminescent Microparticle Immunoassay (CMIA) UA ClnCatch+Micro w/rflx Cul t Reviewed date:03/25/2024 05:05:48 PM Interpretation: Performing Lab:[facility], [address] [place] [phone] Notes/Report: Urine, Clean Catch Color Urine Yellow Appearance Urine Clear PH 5.5 5.0-9.0 Glucose Urine UA Negative Negative mg/dL Urine Blood Negative Negative Specific [place] - Urine <= 1.005 1.005-1.025 Urine Protein Negative Neg-Trace mg/dL Urine Ketones Negative Negative mg/dL Nitrite Urine Negative Negative Leukocyte Esterase Urine Negative Negative RBC Urine 0-2 0-2 /HPF WBC Urine 0-5 0-5 /HPF Squamous Epithelial Cell Urine 0-2 0-2 /HPF Bacteria Urine None Seen None Seen Hyaline Casts Urine 0-2 0-2 /LPF Reason For Referral No Information Medications Medication SIG (Take, Route, Frequency, Duration) Notes Start Date End Date Status Paxlovid (300/100) 20 x 150 MG & 10 x 100MG 3 tablets Orally Twice a day for 5 day(s) 04/06/2024 Active Celecoxib 200 MG take 1 capsule by mo uth every day with food for 90 days Orally Once a day for 90 days Active Tamsulosin HCl 0.4 MG TAKE 1 [...] days Orally daily for 90 days Active Amoxicillin-Pot Clavulanate 875-125 MG 1 tablet Orally every 12 hrs for 3 day(s) 11/28/2023 Active Immunizations Vaccine Route Administration Date Status Comme nts Fluarix Quadrivalent Unknown 02/10/2017 Administered [facility] PPSV23 (Pnemovax) IM Intramuscular 04/01/2017 Administered TDaP IM Intramuscular 04/12/2017 [address]ered [facility] [place]. Fluarix Quadrivalent Unknown 02/09/2018 Administered [facility] Fluarix Quadrivalent Unknown 02/08/2019 Administered [facility] Prevnar 13 Unknown 02/08/2019 Administered pt was given the vaccine at [facility] in [place] PPSV23 (Pnemovax) IM Intramuscular 04/10/2021 Administered SARS-COV-2 Pfizer Unknown 06/11/2020 Administered SARS-COV-2 Pfizer Unknown 07/02/2020 Administered SARS-COV-2 Pfizer Unknown 01/05/2021 Administered Fluarix Quadrivalent Unknown 01/23/2021 Administered Influenza High Dose Unknown 01/31/2022 [facility]ered [facility] Social History Tobacco Use: Social History Observation [...] ast year? No Points 0 Interpretation Negative Problems Problem Type SNOMED Code ICD Code Onset Dates Problem Status W/U Status Risk Notes Problem 54246808 Hematuria (R31.9) Active confirmed Problem 02040507 Prostatism (N40.0) Active confirmed Problem 266568756 Reflux esophagitis (K21.00) Active confirmed Problem 862149359 Low back pain (M54.5) Active confirmed Problem 486989615 Lumbar disc disease (M51.9) Active confirmed Problem 52772459 Essential hypertension (I10) Active confirmed Problem 14541600 Unilateral inguinal hernia without obstruction or gangrene, recurrence not specified (K40.90) Active confirmed Vital Signs Blood pressure diastolic 84 mm Hg 04/01/2024 kassandra ght is up 8 pounds since 03-21-23 Height 70 in 04/01/2024 weight is up 8 pounds since 03-21-23 Blood pressure systolic 112 mm Hg 04/01/2024 weig ht is up 8 pounds since 03-21-23 Weight 247 lbs 04/01/2024 weight is up 8 pounds since 03-21-23 BMI 35.44 kg/m2 04/01/2024 weight is up 8 pounds since 03-21-23 Encounters Encounter Location Date Provider Diagnosis Yaw Delgadillo MD [address] [place] [address] [place] [id number] 03/25/2024 Yaw Delgadillo Hematuria R31.9 ; Prostatism N40.0 and Essential hypertension I10 Yaw Delgadillo MD [address] [place] [id number] 11/28/2023 Yaw Delgadillo Acute maxillary sinusitis, recurrence not specified J01.00 Yaw Delgadillo MD [address] [place] [id number] 04/01/2024 Yaw Delgadillo Hemorrhoids, externa l K64.4 ; Sinus congestion R09.81 ; Essential hypertension I10 ; Reflux esophagitis K21.00 ; Prostatism N40.0 and Depression screening Z13.31 Yaw Delgadillo MD [address] [place] [id number] 12/23/2023 Yaw Delgadillo MD [address] [place] [address] [id number] 04/06/2024 Yaw Delgadillo MD [address] [place] [id number] 04/06/2024 Yaw Delgadillo MD [address] [place] [address] [id number] 04/06/2024 Yaw Delgadillo Assessments Encounter Date Diagnosis (ICD Code) Assessment Notes Treatment Notes Treatment Clinical Notes Section Notes 03/25/2024 Hematuria (ICD-10 - R31.9) 03/25/2024 Prostatism (ICD-10 - N40.0) 11/28/2023 Acute maxillary sinusitis, recurrence not specified (ICD-10 - J01.00) patient verbalized medication and directions for use 04/01/2024 Hemorrhoids, external (ICD-10 - K64.4) 04/01/2024 Sinus congestion (ICD-10 - R09.81) will get ct of sinuses/ MR LAY IS HAVING A CT SCAN THROUGH DR [place] OFFICE 03/25/2024 Essential hypertension (ICD-10 - I10) 04/01/2024 Essential hypertension (ICD-10 - I10) stable, will continue current regiment 04/01/2024 Reflux esophagitis (ICD-10 - K21.00) doing well, will continue current regiment 04/01/2024 Prostatism (ICD-10 - N40.0) stable, will continue current regiment 04/01/2024 Depression screening (ICD-10 - Z13.31) negative screen Plan Of Treatment Pending Test Test Name Order Date Electrocardiogram (EKG) 04/04/2016 Electrocardiogram (EKG) 03/27/2018 Electrocardiogram (EKG) 04/01/2019 Next Appt Details Provider Name:Yaw Roque ier, 03/28/2025 07:45:00 AM, [address] [place] [address], [address], [place], [place], [phone], Provider Name:Yaw Roque ier, 04/04/2025 01:00:00 PM, [address] [place] [address], [address], [place], [place], [phone], Insurance Providers Payer Name Payer Address Payer Phone Subscriber Number Group Number Insured Name Patient Relationship to Insured Coverage Start Date Coverage End Date MEDICARE [facility] [address] [place] [address] [id number] Omer Lay Self - patient is the insured [facility] [address] [place] [phone] [id number] Omer Lay Self - patient is the insured Medical (General) History Medical History History ICD Code discussed colonoscopy and refuses 2017, pt refused to do cologuard 03/2019 has trace hematuria since 2010 Surgical History Surgery Date(Month/Year) Repair of rt inguinal hernia with mesh ( Dr. Barrios) 03/2016
--- OUTSIDE RECORDS SUMMARY | 2024-05-31 18:16 | XMS_ITS ---
Author Organization Yaw Delgadillo MD Address [address] [place] [phone] Care Team Providers Care Country Printer Apprentice Name Role Phone Yaw Delgadillo Primary Care Provider [phone] Encounters Encounter Location Date Provider Diagnosis Yaw Delgadillo MD [address] [facility] [address] [place] [phone] 04/06/2024 Yaw Delgadillo Plan Of Treatment Next Appt Details Provider Name:Yaw rudd, 03/28/2025 07:45:00 AM, [address], Suite [facility], [place], [place], [phone], Provider Name:Yaw rudd, 04/04/2025 01:00:00 PM, [address] [place] [address], [address], [place], [phone], Progress Notes * Omer LAY ADOB:[birth year] (68 yo M)Acc No.[id number]:04/06/2024 Patient:?Omer Lay :1955???Age:68 Y???Sex:Male Address:[address] [place] [address] [place], [address] * true * Date:? Generated for Umer craig/Elaine/eTransmitting on:?05/31/2024 06:16 PM EST
--- OUTSIDE RECORDS SUMMARY | 2024-05-31 18:16 | XMS_ITS ---
Author Organization Yaw Delgadillo MD Address [address] [place] [phone] Care Team Providers Care Tank Tester Name Role Phone Yaw Delgadillo Primary Care Provider [phone] Encounters Encounter Location Date Provider Diagnosis Yaw Delgadillo MD [address] [facility] [address] [place] [phone] 04/06/2024 Yaw Delgadillo Plan Of Treatment Next Appt Details Provider Name:Yaw rudd, 03/28/2025 07:45:00 AM, [address], Suite [facility], [place], [place], [phone], Provider Name:Yaw rudd, 04/04/2025 01:00:00 PM, [address] [place] [address], [address], [place], [phone], Progress Notes * Omer LAY ADOB:[birth year] (68 yo M)Acc No.[id number]:04/06/2024 Patient:?Omer Lay :1955???Age:68 Y???Sex:Male Address:[address] [place] [address] [place], [address] * true * Date:? Generated for Umer craig/Elaine/eTransmitting on:?05/31/2024 06:16 PM EST
--- OUTSIDE RECORDS SUMMARY | 2024-05-31 18:16 | XMS_ITS ---
Author Organization Yaw Delgadillo MD Address [address] [place] [phone] Care Team Providers Care Soil Analyst Name Role Phone Yaw Delgadillo Primary Care Provider [phone] Medications Medication SIG (Take, Route, Frequency, Duration) Notes Start Date End Date Status Paxlovid (300/100) 20 x 150 MG & 10 x 100MG 3 tablets Orally Twice a day for 5 day(s) 04/06/2024 Active Encounters Encounter Location Date Provider Diagnosis Yaw Delgadillo MD [address] [place] [phone] 04/06/2024 Yaw Delgadillo Plan Of Treatment Medication Medication Name Sig Start Date Stop Date Notes Paxlovid (300/100) 20 x 150 MG & 10 x 100MG 3 tablets Orally Twice a day for 5 day(s) 04/06/2024 Next Appt Details Provider Name:Yaw Roque ier, 03/28/2025 07:45:00 AM, [address] [facility], Suite [facility], [place], [place], [phone], Provider Name:Yaw Roque ier, 04/04/2025 01:00:00 PM, [address] [facility], [place] [address], [place], [place], [phone], Progress Notes * Omer LAY ADOB:[birth year] (68 yo M)Acc No.[id number]:04/06/2024 Patient:?Omer Lay :1955???Age:68 Y???Sex:Male Address:[address] [place] [address], [facility] [address] * Refills? Start Paxlovid (300/100) Tablet Therapy Pack, 20 x 150 MG & 10 x 100MG, Orally, 30, 3 tablets, Twice a day, 5 day(s) * true * Date:? Generated for Umer craig/Elaine/Erinitting on:?05/31/2024 06:15 PM EST
--- OUTSIDE RECORDS SUMMARY | 2024-05-31 18:17 | XMS_ITS | Patient Health Record ---
Author Organization [facility] Leo alfred TaylorMando Address [address] [place] [address] Care Team Providers Care Director Automotive Name Role Phone Yaw Delgadillo MD Primary Care Provider Fco Montes De Oca Unavailable [phone] Allergies No Known Allergies Reason For Referral [...] Vaccine Route Administration Date Status Comme nts COVID-19 Pfizer BioNTech Vaccine Unknown 01/05/2021 [...] primary osteoarthritis of the ankle and/or foot (115101647) Primary osteoarthrit is, right ankle and foot (M19.071) Active confirmed Problem Localized, primary osteoarthritis of the ankle and/or foot (465257333) Primary osteoarthrit is, left ankle and foot (M19.072) Active confirmed Problem Acquired hammer toe of right foot (2230526788769046) Other hammer toe(s) (acquired), right foot (M20.41) Active confirmed Problem Acquired hammer toe of left foot (9593164032374529) Other hammer toe(s) (acquired), left foot (M20.42) Active confirmed Plan Of Treatment Pending Test Test Name Order Date X ray : Foot, left 2V 08/25/2017 X ray : Foot, right 2V 08/25/2017 X ray : Foot, right 3V 05/08/2021 87836- Nail Unit Biopsy 08/25/2017 Insurance Providers Payer Name Payer Address Payer Phone Subscriber Number Group Number Insured Name Patient Relationship to Insured Coverage Start Date Coverage End Date Medicare National Govt SvMedTest DX [facility] [address] [place] [address] [id number] Atif Omer Self - patient is the insured [employer]) [address] [place] [address] [id number] Atif Aziza Spouse - patient is the spouse of the insured Medical (General) History Medical History History ICD Code Arthritis Back,Hip,and Knee pain Broken bones High blood pressure Measles Chicken pox Numbness Reflux ( GERD) Warts Surgical History Surgery Date(Month/Year) hernia, right side 03/14/16 hernia, left side 02/27/20, 02/07/21, Hospitalization History Reason Date(Month/Year) Hernia 02/2021
== END 2024-05-31 16:10 | disposition home or self-care (01) ==
LOC: HO.CT 16:09
PROVIDERS: PCP Internal Medicine; Visit Provider Otolaryngology
DX: J33.0 Polyp of nasal cavity (principal); J34.2 Deviated nasal septum
CPT/HCPCS: 70486

== ENCOUNTER → 2024-05-31 16:11 | Outpatient (BNV) | payer MEDICARE, OTHER, SELFPAY | PROVIDERS: PCP Internal Medicine; Visit Provider Radiology Diagnostic Radiology | DX: J34.89 Other specified disorders of nose and nasal sinuses (principal) | CPT/HCPCS: 70486 ==

== ENCOUNTER 2025-03-28 09:49 | Outpatient (REF) | payer MEDICARE, OTHER, SELFPAY ==
--- OUTSIDE RECORDS SUMMARY | 2023-11-28 05:45 | XMS_ITS ---
Author Organization Yaw Delgadillo MD Address [address] [place] [phone] Care Team Providers Care Cable Swager Name Role Phone Yaw Delgadillo Primary Care Provider Allergies No Known Allergies REASON FOR VISIT sinus infection yellow mucus, c/o cannot smell or taste congestion x 1 month DId not test for Covid, Video [phone], [facility] [place] [phone] Medications Medication SIG (Take, Route, Frequency, Duration) Notes Start Date End Date Status Celecoxib 200 MG take 1 capsule by [facility] every day with food for 90 days Orally Once a day for 90 days Active Amoxicillin-Pot Clavulanate 875-125 MG 1 tablet Orally every 12 hrs for 3 day(s) 11/28/2023 Active Tamsulosin HCl 0.4 MG TAKE 1 CAPSULE BY MOUTH EVERY DAY FOR 30 DAYS for 90 Active Lansoprazole 15 MG take 1 capsule by [facility] daily Orally Once a day for 90 Active amLODIPine Besy-Benazepril HCl 5-20 MG take 1 capsule by mouth every day for 90 days Orally daily for 90 days Active Hydrocortisone Roge-Pramoxine 2.5-1 % 1 application as needed Externally one times a day for 30 days 04/17/2021 Active Minocycline HCl 100 MG 1 tablet Orally o nce a day for 90 days Active Vital Signs Height 70 in 11/28/2023 weight is 235 BP not taken t wojciech , no temp Encounters Encounter Location Date Provider Diagnosis Yaw Delgadillo MD [address] [place] [address] [place] [phone] 11/28/2023 Yaw Delgadillo Acute maxillary sinusitis, recurrence not specified J01.00 Assessments Encounter Date Diagnosis (ICD Code) Assessment Notes Treatment Notes Treatment Clinical Notes Section Notes 11/28/2023 Acute maxillary sinusitis, recurrence not specified (ICD-10 - J01.00) patient verbalized medication and directions for use Plan Of Treatment Medication Medication Name Sig Start Date Stop Date Notes Amoxicillin-Pot Clavulanate 875-125 MG 1 tablet Orally every 12 hrs for 3 day(s) 11/28/2023 Treatment Notes Assessment Notes Acute maxillary sinusitis, r ecurrence not specified patient verbalized medication and directions for use Next Appt Details Provider Name:Yaw Roque ier, 04/04/2025 01:00:00 PM, [address] [place] [address], Suite [facility], [place], [place], [phone], Progress Notes * Omer LAY ADOB:[birth year] (68 yo M)Acc No.[id number]:11/28/2023 Patient: Omer Crooks Gabriela Provider: Sudhir Delgadillo MD :1955 A ge:68 Y S ex:Male Date:11/28/2023 Address:[address] [place], [place] [phone] Subjective: * Chief Complaints: * S inus infection yellow mucusc/o cannot smell or taste congestion x 1 month DId not test for CovidVideo [phone] [place] [phone] * HPI: S ymptom(s): Telehealth L ocation of provider rendering services: [address], [address], L ocation of patient: o ther (please specify) [place], P atient identification confirmed using: N amy, , SSN, Insurance information, T elehealth method: T elephone only. Patient not visible to care provider., C onsent: P atient verbally consented to treatment, Patient verbally consented to billing insurance company, Patient informed of any privacy concerns related to method of visit, T otal time spend talking with patient (minutes) 1 2. patient is a 68 yo male audio telehealth visit, here as emergency. has sinus infection for one month. had been getting better and now is getting worse. is doing worse this week. all in head and ears. * ROS: G eneral/Constitutional: Denies C hills. D enies F atigue. D enies F ever. D enies H eadache. E NT: Patient denies d ecreased sense of smell, any loss of taste, sore throat. A dmits S inus pain. D enies S ore throat. R espiratory: Denies C ough. D enies S hortness of breath at rest. D enies S hortness of breath with exertion. G astrointestinal: Denies D iarrhea. D enies N ausea. M usculoskeletal: Patient denies m uscle aches. P eripheral Vascular: Patient denies r ed and blue toes. * Medical History: * Surgical History: * Hospitalization/Major Diagno stic Procedure: * Medications: T akingLansoprazole 15 MG Capsule Delayed Release take 1 capsule by mouth daily Orally Once a dayHydrocortisone Roge-Pramoxine 2.5-1 % Cream 1 application as needed Externally one times a dayMinocycline HCl 100 MG Tablet 1 tablet Orally once a dayamLODIPine Besy-Benazepril HCl 5-20 MG Capsule take 1 capsule by mouth every day for 90 days Orally dailyCelecoxib 200 MG Capsule take 1 capsule by mouth every day with food for 90 days Orally Once a dayTamsulosin HCl 0.4 MG Capsule TAKE 1 CAPSULE BY MOUTH EVERY DAY FOR 30 DAYS Medication List reviewed and reconciled with the patientTaking Lansoprazole 15 MG Capsule Delayed Release take 1 capsule by mouth daily Orally Once a dayTaking Hydrocortisone Roge-Pramoxine 2.5-1 % Cream 1 application as needed Externally one times a dayTaking Minocycline HCl 100 MG Tablet 1 tablet Orally once a dayTaking amLODIPine Besy-Benazepril HCl 5-20 MG Capsule take 1 capsule by mouth every day for 90 days Orally dailyTaking Celecoxib 200 MG Capsule take 1 capsule by mouth every day with food for 90 days Orally Once a dayTaking Tamsulosin HCl 0.4 MG Capsule TAKE 1 CAPSULE BY MOUTH EVERY DAY FOR 30 DAYS Medication List reviewed and reconciled with the patient * Allergies: N .K.D.A.yes[Allergies Verified] Objective: * Vitals: H t: 68 weight is 235 BP not taken today , no temp. Assessment: * Assessment: 1. A cute maxillary sinusitis, recurrence not specified - J01.00 (Primary) Plan: * Treatment: * Procedure Codes: 9 9442 PHONE E/M BY PHYS 11-20 MIN * * Sign off status: Completed true * Provider: Sudhir Delgadillo MD Date: 0 11/28/2023 Generated for Umer craig/Elaine/Erinitting on: 1 05/29/2024 11:39 AM EST History and Physical Notes * HPI (History of Present Illness) Category Sub-Category Detail Notes Category Not es Symptom(s) Telehealth Location of [facility] rendering services:: [address] [place] [address] Drive, [address] patient is a 68 yo male audio telehealth visit, here as emergency. has sinus infection for one month. had been getting better and now is getting worse. is doing worse this week. all in head and ears Location of patient:: other (please spec cuco) [facility] Patient identification confi rmed using:: Name, , SSN, Insurance information Telehealth method:: Telephone only. Camila ent not visible to care provider. Consent:: Patient verbally c onsented to treatment, Patient verbally consented to billing insurance company, Patient informed of any privacy concerns related to method of visit Total time spend talking with patient (m inutes): 12
--- OUTSIDE RECORDS SUMMARY | 2023-12-23 03:37 | XMS_ITS ---
Author Organization Yaw Delgadillo MD Address [address] [place] [phone] Care Team Providers Care Court Monitor Name Role Phone LeonaGenetn Primary Care Provider REASON FOR VISIT ears blocked, sinus congested Encounters Encounter Location Date Provider Diagnosis Yaw Delgadillo MD [address] [place] [phone] 12/23/2023 Yaw Delgadillo Plan Of Treatment Next Appt Details Provider Name:Yaw Roque ier, 04/04/2025 01:00:00 PM, [address], [address], [place], [place], [phone], Progress Notes * Omer LAY ADOB:[birth year] (68 yo M)Acc No.[id number]:12/23/2023 Patient: Omer Crooks :1955 A ge:68 Y S ex:Male Address:[address] [place] [address], [address] * true * Date: Generated for Umer craig/Elaine/Nabeelsmitting on: 05/29/2024 11:38 AM EST
--- OUTSIDE RECORDS SUMMARY | 2024-03-25 02:15 | XMS_ITS ---
Author Organization Yaw Delgadillo MD Address [address] [place] [phone] Care Team Providers Care Licensed Life And Health Agent Name Role Phone Yaw Delgadillo Primary Care Provider Results Component Value Reference Range Notes Complete Blood Count Auto Di ff Reviewed date:03/25/2024 12:24:38 PM Interpretation: Performing Lab:[facility], [address] [place] [phone] Notes/Report: White Blood Count 5.5 4.8-10.8 X10*3/uL Red Blood Count 5.16 4.60-5.80 X10*6/uL Hemoglobin 15.5 14.0-18.0 g/dl Hematocrit 46.4 42.0-52.0 % Mean Corpuscular Volume 89.9 80.0-98.0 fL Mean Corpuscular Hemoglobin 30.0 27.0-33.0 pg Mean Corpuscular HGB Conc 33.4 31.0-36.0 g/dl Red Cell Distribution Width 12.6 11.0-16.0 % Platelet Count 185 160-400 X10*3/uL Mean Platelet Volume 10.0 9.4-12.4 fL Neutrophils Percent Auto 59.5 45-73 % Imm Gran Pct Auto 0.4 0.0-0.4 % Lymphocytes Percent Auto 24.9 20-40 % Monocytes Percent Auto 11.1 2-11 % Eosinophils Percent Auto 3.4 0-4 % Basophils Percent Auto 0.7 0-2 % NRBC Pct Auto 0.0 0.0-0.2 /100WBC Neutrophils Absolute Auto 3.3 2.0-8.3 x10*3/u L Imm Gran Abs Auto 0.02 0.00-0.03 X10*3/uL Lymphocytes Absolute Auto 1.4 1.2-4.9 X10*3/u L Monocytes Absolute Auto 0.6 0.1-1.2 X10*3/uL Eosinophils Absolute Auto 0.2 0.0-0.4 X10*3/u L Basophils Absolute Auto 0.0 0.0-0.2 X10*3/uL NRBC Abs Auto 0.000 0.0-0.012 X10*3/uL Comprehensive [place]. Panel Fa st Reviewed date:03/25/2024 12:26:02 PM Interpretation: Performing Lab:[facility], [address] [place] [phone] Notes/Report: Sodium 139 135-145 mmol/L Potassium 4.6 3.3-5.1 mmol/L Chloride 107 96-108 mmol/L Carbon Dioxide 27 22-29 mmol/L Anion Gap 10 12-20 Blood Urea Nitrogen 20 9-16 mg/dL Creatinine 0.95 0.5-1.4 mg/dL Estimated Glomerular Filt Rate > 60 Chronic Kidney Disease: Estimated GFR < 60 mL/min/1.73m2 Severe Kidney Disease: Estimated GFR < 15 mL/min/1.73m2 Glucose Fasting 95 60-99 mg/dL Calcium 8.9 8.4-10.2 mg/dL Bilirubin Total 0.5 0.0-1.0 mg/dL Aspartate Amino Transferase 26 5-37 U/L Alanine Aminotransferase 30 0-40 U/L Total Protein 7.1 6.5-8.0 g/dL Albumin Level 4.0 3.5-5.0 g/dL Alkaline Phosphatase 73 39-117 U/L Lipid Panel Reviewed date:03/25/2024 12:19:03 PM Interpretation: Performing Lab:[address] [phone] Notes/Report: Triglycerides 99 <150 mg/dL Desirable Triglyceride: less than 150 mg/dL Borderline High Triglyceride 150-199 mg/dL High Triglyceride: 200-499 mg/dL Very High Triglyceride: greater than or equal to 5OO mg/dL Cholesterol 182 <200 mg/dL Desirable Cholesterol: less than 200 mg/dL Borderline High Cholesterol: 200-239 mg/dL High Cholesterol: greater than 239 mg/dL LDL Cholesterol Calculated 113 <100 mg/dL Desirable LDL: less than 100 mg/dL Near Optimal/Above Optimal LDL: 110-129 mg/dL Borderline High LDL: 130-159 mg/dL High LDL: 160-189 mg/dL Very High LDL: greater than or equal to 190 mg/dL HDL Cholesterol 50 >40 mg/dL Desirable HDL: greater than 40 mg/dL Note: This HDL assay may give artificially low results in patients with liver disease. PSA,Total (Free>4and<10) Reviewed date:03/25/2024 12:17:56 PM Interpretation: Performing Lab:[address] [phone] Notes/Report: PSA,Total (Free>4and<10) 0.89 0.00-4.00 ng/mL A Free PSA was not performed: The percentage of Free PSA can be used to enhance the differentiation of prostate cancer from benign prostatic disease in subjects whose PSA levels are between 4.0 and 10.0 ng/mL. For subjects whose PSA levels are below 4.0 or above 10.0 ng/mL, the risk of prostate cancer is determined on the basis of the PSA alone. Therefore the % Free PSA is recommended only for those subjects whose PSA levels are between 4.0 and 10.0 ng/mL. PSA methodology: Ecast i Chemiluminescent Microparticle Immunoassay (CMIA) UA ClnCatch+Micro w/rflx Cul t Reviewed date:03/25/2024 05:05:48 PM Interpretation: Performing Lab:[facility], [address] [place] [phone] Notes/Report: Urine, Clean Catch Color Urine Yellow Appearance Urine Clear PH 5.5 5.0-9.0 Glucose Urine UA Negative Negative mg/dL Urine Blood Negative Negative Specific [place] - Urine <= 1.005 1.005-1.025 Urine Protein Negative Neg-Trace mg/dL Urine Ketones Negative Negative mg/dL Nitrite Urine Negative Negative Leukocyte Esterase Urine Negative Negative RBC Urine 0-2 0-2 /HPF WBC Urine 0-5 0-5 /HPF Squamous Epithelial Cell Urine 0-2 0-2 /HPF Bacteria Urine None Seen None Seen Hyaline Casts Urine 0-2 0-2 /LPF REASON FOR VISIT FASTING LABS Encounters Encounter Location Date Provider Diagnosis Yaw Delgadillo MD [address] [place] [address] [place] [phone] 03/25/2024 Yaw Delgadillo Hematuria R31.9 ; Prostatism N40.0 and Essential hypertension I10 Assessments Encounter Date Diagnosis (ICD Code) Assessment Notes Treatment Notes Treatment Clinical Notes Section Notes 03/25/2024 Hematuria (ICD-10 - R31.9) 03/25/2024 Prostatism (ICD-10 - N40.0) 03/25/2024 Essential hypertension (ICD-10 - I10) Plan Of Treatment Next Appt Details Provider Name:Yaw Roque ier, 04/04/2025 01:00:00 PM, [address] [place] [address], Suite [facility], [place], [place], [phone], Progress Notes * Omer LAY ADOB:[birth year] (69 yo M)Acc No.[id number]:03/25/2024 Progress Note Patient: Omer PINEDA Provider: Sudhir Delgadillo MD :1955 A ge:68 Y S ex:Male Date:03/25/2024 Address:[address] [place], [place] [phone] Subjective: * Chief Complaints: * 1 . FASTING LABS. * Medical History: Objective: * Vitals: Assessment: * Assessment: 1. H ematuria - R31.9 (Primary) 2 . P rostatism - N40.0 3 .?Essential hypertension - I10 Plan: * Treatment: 2. P rostatism L AB: Complete Blood Count Auto Diff (Collection Date & Time - 03/25/2024 07:15 AM) L AB: Comprehensive [place]. Panel Fast (Collection Date & Time - 03/25/2024 07:15 AM) L AB: Lipid Panel (Collection Date & Time - 03/25/2024 07:15 AM) L AB: PSA,Total (Free>4and<10) (Collection Date & Time - 03/25/2024 07:15 AM) L AB: UA ClnCatch+Micro w/rflx Cult (Collection Date & Time - 03/25/2024 07:15 AM) 3. E ssential hypertension L AB: Complete Blood Count Auto Diff (Collection Date & Time - 03/25/2024 07:15 AM) L AB: Comprehensive [place]. Panel Fast (Collection Date & Time - 03/25/2024 07:15 AM) L AB: Lipid Panel (Collection Date & Time - 03/25/2024 07:15 AM) L AB: PSA,Total (Free>4and<10) (Collection Date & Time - 03/25/2024 07:15 AM) L AB: UA ClnCatch+Micro w/rflx Cult (Collection Date & Time - 03/25/2024 07:15 AM) * Procedure Codes: 3 6415 VENIPUNCT, ROUTINE* * * The named appointment provid er may or may not be the originator of this progress note, and it is not deemed complete until electronically signed by the appointment provider. Sign off status: Pending * Provider: Sudhir Delgadillo MD Date: 05/26/2023 Generated for Umer craig/Elaine/Misbah on: 05/29/2024 11:39 AM EST
--- OUTSIDE RECORDS SUMMARY | 2024-04-01 08:00 | XMS_ITS ---
Author Organization Yaw Delgadillo MD Address [address] [place] [phone] Care Team Providers Care Bath Steward Name Role Phone Yaw Delgadillo Primary Care Provider [phone] Allergies No Known Allergies REASON FOR VISIT COMP EXAM Medications Medication SIG (Take, Route, Frequency, Duration) Notes Start Date End Date Status Tamsulosin HCl 0.4 MG TAKE 1 CAPSULE BY MOUTH EVERY DAY FOR 30 DAYS for 90 Active Minocycline HCl 100 MG TAKE 1 TABLET BY MOUTH EVERY DAY FOR 90 DAYS for 90 Active Lansoprazole 15 MG TAKE 1 CAPSULE BY [facility] EVERY DAY FOR 90 DAYS for 90 Active Hydrocortisone Roge-Pramoxine 2.5-1 % 1 application as needed Externally one times a day for 30 days 04/17/2021 Active Amoxicillin-Pot Clavulanate 875-125 MG 1 tablet Orally every 12 hrs for 3 day(s) 11/28/2023 Active Celecoxib 200 MG take 1 capsule by [facility] every day with food for 90 days Orally Once a day for 90 days Active amLODIPine Besy-Benazepril HCl 5-20 MG take 1 capsule by mouth every day for 90 days Orally daily for 90 days Active Social History Tobacco Use: Social History Observation Description Date Details (start date - stop date) Former Smoker NA - NA Tobacco Use/Smoking Question Answer Notes Patient is a former smoker How long has it been since y ou last smoked? > 10 years Additional Findings: Tobacco Non-User Fo rmer smoker, currently using no form of tobacco Alcohol Screen Question Answer Notes Did you have a drink containing alcohol in the p ast year? No Points 0 Interpretation Negative Vital Signs Blood pressure systolic 112 mm Hg 04/01/20 24 Blood pressure diastolic 84 mm Hg 024 Height 70 in 04/01/2024 Weight 247 lbs 04/01/2024 BMI 35.44 kg/m2 04/01/2024 weight is up 8 pounds since 03-21-23 Encounters Encounter Location Date Provider Diagnosis Yaw Delgadillo MD [address] [place], [place] [phone] 04/01/2024 Yaw Delgadillo Hemorrhoids, externa l K64.4 ; Sinus congestion R09.81 ; Essential hypertension I10 ; Reflux esophagitis K21.00 ; Prostatism N40.0 and Depression screening Z13.31 Assessments Encounter Date Diagnosis (ICD Code) Assessment Notes Treatment Notes Treatment Clinical Notes Section Notes 04/01/2024 Hemorrhoids, external (ICD-10 - K64.4) 04/01/2024 Sinus congestion (ICD-10 - R09.81) will get ct of sinuses/ MR LAY IS HAVING A CT SCAN THROUGH DR NAPOLES OFFICE 04/01/2024 Essential hypertension (ICD-10 - I10) stable, will continue current regiment 04/01/2024 Reflux esophagitis (ICD-10 - K21.00) doing well, will continue current regiment 04/01/2024 Prostatism (ICD-10 - N40.0) stable, will continue current regiment 04/01/2024 Depression screening (ICD-10 - Z13.31) negative screen Plan Of Treatment Medication Medication Name Sig Start Date Stop Date Notes Tamsulosin HCl 0.4 MG TAKE 1 CAPSULE BY MOUTH EVERY DAY FOR 30 DAYS for 90 Minocycline HCl 100 MG TAKE 1 TABLET BY MOUTH EVERY DAY FOR 90 DAYS for 90 Lansoprazole 15 MG TAKE 1 CAPSULE BY [facility] EVERY DAY FOR 90 DAYS for 90 Hydrocortisone Roge-Pramoxine 2.5-1 % 1 application as needed Externally one times a day for 30 days 04/17/2021 Celecoxib 200 MG take 1 capsule by mo ut every day with food for 90 days Orally Once a day for 90 days amLODIPine Besy-Benazepril H Cl 5-20 MG take 1 capsule by mouth every day for 90 days Orally daily for 90 days Treatment Notes Assessment Notes Sinus congestion will get ct of sinus es/ MR ALIREZA IS HAVING A CT SCAN THROUGH DR NAPOLES OFFICE Essential hypertension stable, will cont inue current regiment Reflux esophagitis doing well, will con tinue current regiment Prostatism stable, will continu e current regiment Depression screening negative screen Next Appt Details Follow Up: 1 Year, Reason: Provider Name:Yaw Roque ier, 04/04/2025 01:00:00 PM, [address] [place] [address], Suite [facility], [place], [place], [phone], Progress Notes * MATHEUSOmer MURRAY ADOB:[birth year] (68 yo M)Acc No.[id number]:04/01/2024 Patient: Omer Crooks Provider: Sudhir Delgadillo MD :1955 A ge:68 Y S ex:Male Date:04/01/2024 Address:[address] [place], [place] [phone] Subjective: * Chief Complaints: * C OMP EXAM * HPI: D epression Screening: PHQ-9 L ittle interest or pleasure in doing things N ot at all, F eeling down, depressed, or hopeless N ot at all, T rouble falling or staying asleep, or sleeping too much N ot at all, F eeling tired or having little energy N ot at all, P oor appetite or overeating N ot at all, F eeling bad about yourself or that you are a failure, or have let yourself or your family down N ot at all, T rouble concentrating on things, such as reading the newspaper or watching television N ot at all, M oving or speaking so slowly that other people could have noticed; or the opposite, being so fidgety or restless that you have been moving around a lot more than usual N ot at all, T houghts that you would be better off or of hurting yourself in some way N ot at all, T otal Score 0 . I nterpretation and Intervention D epression Screening Findings N egative, F ollow-Up for Depression : review of PHQ-9 found negative result, no follow-up needed. C ommunication Needs: Communication Needs D oes the patient have a hearing impairment N o, D oes the patient have a vision impairment? Y es, I f yes, what is the vision impairment? G lasses, D oes the patient have a cognition impairment? N o. F all Risk: History H ave you had any falls with injury in the past year? N o, H ave you had two or more falls in the past year? N o. S SRAVANI Questions: SDOH Questions I n the past year have you been worried about losing housing? N o, I n the past year have you or any family members you live with been unable to get any of the following when it was really needed? Check all that apply: N one. S ymptom(s): patient is a 68 yo male here fo visit with review of recent labs and follow up of chronic issues, has pains all over in various joints./ is satisfactory with one celebrex and 2 tylenol. * ROS: G eneral/Constitutional: Patient denies f atigue , headache. C hange in appetite?denies. C hills d enies. F ever d enies. O phthalmologic: Blurred vision d enies. D ischarge d enies. P ain d enies. E NT: Patient denies d ecreased sense of smell , any loss of taste , sore throat. D ecreased hearing d enies. S ore throat d enies. S wollen glands d enies. E ndocrine: Cold intolerance d enies. E xcessive thirst d enies. H eat intolerance d enies. W eight loss d enies. R espiratory: Cough d enies. S hortness of breath at rest d enies. S hortness of breath with exertion d enies. W heezing d enies. C ardiovascular: Chest pain at rest d enies. C hest pain with exertion?denies. I rregular heartbeat d enies. S hortness of breath d enies. ? G astrointestinal: Abdominal pain d enies. C hange in bowel habits d enies. D iarrhea d enies. N ausea d enies. R ectal bleeding d enies. V omiting d enies . G enitourinary: Blood in urine d enies. D ifficulty urinating d enies. F requent urination d enies. M usculoskeletal: Patient denies m uscle aches. P ainful joints d enies. W eakness d enies. P eripheral Vascular: Patient denies r ed and blue toes. S kin: Dry skin d enies. I tching d enies. D enies?Mole(s), changes in moles, new moles or any lesions of concern. D enies P hotosensitivity. R delphine d enies. N eurologic: Dizziness d enies. F ainting d enies. H eadache?denies. * Medical History: * Surgical History: * Hospitalization/Major Diagno stic Procedure: * Family History: F ather: 66 yrs, diagnosed with Cancer. M other: 85 yrs, diagnosed with COPD. 2 sister(s) . 2 son(s) , 2 daughter(s) . . Father- Lung cancer Mother- Old age, Denies mental health/substance abuse family history, Denies mental health/substance abuse family history, No pertinent family medical history, Denies mental health/substance abuse family history, No pertinent family medical history. * Social History: T obacco Use: T obacco Use/Smoking P atient is a f ormer smoker, H ow long has it been since you last smoked? > 10 years, A dditional Findings: Tobacco Non-User F ormer smoker, currently using no form of tobacco. D rugs/Alcohol: A lcohol Screen D id you have a drink containing alcohol in the past year? N o, P oints 0 , I nterpretation N egative. M iscellaneous: C affeine: yes, frequency:1 can of diet coke every 2 weeks. Children: yes. no Community involvements. Exercise: yes, 7 days a week walks 3 miles every morning cardio and bands and push ups at home. Housing: owning. Living with: spouse. Marital status: . Occupation: works full-time. Pets: none. no Travel outside of the [place]. * Medications: T akingHydrocortisone Roge-Pramoxine 2.5-1 % Cream 1 application as needed Externally one times a dayamLODIPine Besy-Benazepril HCl 5-20 MG Capsule take 1 capsule by mouth every day for 90 days Orally dailyCelecoxib 200 MG Capsule take 1 capsule by mouth every day with food for 90 days Orally Once a dayTamsulosin HCl 0.4 MG Capsule TAKE 1 CAPSULE BY MOUTH EVERY DAY FOR 30 DAYS Amoxicillin-Pot Clavulanate 875-125 MG Tablet 1 tablet Orally every 12 hrsMinocycline HCl 100 MG Tablet TAKE 1 TABLET BY MOUTH EVERY DAY FOR 90 DAYS Lansoprazole 15 MG Capsule Delayed Release TAKE 1 CAPSULE BY MOUTH EVERY DAY FOR 90 DAYS Medication List reviewed and reconciled with the patientTaking Hydrocortisone Roge-Pramoxine 2.5-1 % Cream 1 application as needed Externally one times a dayTaking amLODIPine Besy-Benazepril HCl 5-20 MG Capsule take 1 capsule by mouth every day for 90 days Orally dailyTaking Celecoxib 200 MG Capsule take 1 capsule by mouth every day with food for 90 days Orally Once a dayTaking Tamsulosin HCl 0.4 MG Capsule TAKE 1 CAPSULE BY MOUTH EVERY DAY FOR 30 DAYS Taking Amoxicillin-Pot Clavulanate 875-125 MG Tablet 1 tablet Orally every 12 hrsTaking Minocycline HCl 100 MG Tablet TAKE 1 TABLET BY MOUTH EVERY DAY FOR 90 DAYS Taking Lansoprazole 15 MG Capsule Delayed Release TAKE 1 CAPSULE BY MOUTH EVERY DAY FOR 90 DAYS Medication List reviewed and reconciled with the patient * Allergies: N .K.D.A.yes[Allergies Verified] Objective: * Vitals: H t: 70, Wt:247, BMI:35.44, BP:112/84 weight is up 8 pounds since 12-15-23. * P ast Orders: L ab:Comprehensive [place]. Panel Fast (Order Date - 03/25/2024) (Collection Date - 03/25/2024) Value Reference Range Sodium 139 135-145 - mmol/L Bilirubin Total 0.5 0.0-1.0 - mg/dL Aspartate Amino Transferase 26 5-37 - U/L Alanine Aminotransferase 30 0-40 - U/L Total Protein 7.1 6.5-8.0 - g/dL Albumin Level 4.0 3.5-5.0 - g/dL Alkaline Phosphatase 73 39-117 - U/L Potassium 4.6 3.3-5.1 - mmol/L Chloride 107 96-108 - mmol/L Carbon Dioxide 27 22-29 - mmol/L Anion Gap 10 L 12-20 - Blood Urea Nitrogen 20 H 9-16 - mg/dL Creatinine 0.95 0.5-1.4 - mg/dL Estimated Glomerular Filt Rate > 60 - Glucose Fasting 95 60-99 - mg/dL Calcium 8.9 8.4-10.2 - mg/dL L ab:Complete Blood Count Auto Diff (Order Date - 03/25/2024) (Collection Date - 03/25/2024) Value Reference Range White Blood Count 5.5 4.8-10.8 - X10*3/uL Red Blood Count 5.16 4.60-5.80 - X10*6/uL Hemoglobin 15.5 14.0-18.0 - g/dl Hematocrit 46.4 42.0-52.0 - % Mean Corpuscular Volume 89.9 80.0-98.0 - fL Mean Corpuscular Hemoglobin 30.0 27.0-33.0 - pg Mean Corpuscular HGB Conc 33.4 31.0-36.0 - g/ dl Red Cell Distribution Width 12.6 11.0-16.0 - % Platelet Count 185 160-400 - X10*3/uL Mean Platelet Volume 10.0 9.4-12.4 - fL Neutrophils Percent Auto 59.5 45-73 - % Imm Gran Pct Auto 0.4 0.0-0.4 - % Lymphocytes Percent Auto 24.9 20-40 - % Monocytes Percent Auto 11.1 H 2-11 - % Eosinophils Percent Auto 3.4 0-4 - % Basophils Percent Auto 0.7 0-2 - % NRBC Pct Auto 0.0 0.0-0.2 - /100WBC Neutrophils Absolute Auto 3.3 2.0-8.3 - x10* 3/uL Imm Gran Abs Auto 0.02 0.00-0.03 - X10*3/uL Lymphocytes Absolute Auto 1.4 1.2-4.9 - X10* 3/uL Monocytes Absolute Auto 0.6 0.1-1.2 - X10*3/ uL Eosinophils Absolute Auto 0.2 0.0-0.4 - X10* 3/uL Basophils Absolute Auto 0.0 0.0-0.2 - X10*3/ uL NRBC Abs Auto 0.000 0.0-0.012 - X10*3/uL L ab:UA ClnCatch+Micro w/rflx Cult (Order Date - 03/25/2024) (Collection Date - 03/25/2024) Value Reference Range Color Urine Yellow - Appearance Urine Clear - PH 5.5 5.0-9.0 - Glucose Urine UA Negative Negative - mg/dL Urine Blood Negative Negative - Specific [place] - Urine <= 1.005 1.005-1.025 - Urine Protein Negative Neg-Trace - mg/dL Urine Ketones Negative Negative - mg/dL Nitrite Urine Negative Negative - Leukocyte Esterase Urine Negative Negative - RBC Urine 0-2 0-2 - /HPF WBC Urine 0-5 0-5 - /HPF Squamous Epithelial Cell Urine 0-2 0-2 - /HP F Bacteria Urine None Seen None Seen - Hyaline Casts Urine 0-2 0-2 - /LPF L ab:PSA,Total (Free>4and<10) (Order Date - 03/25/2024) (Collection Date - 03/25/2024) Value Reference Range PSA,Total (Free>4and<10) 0.89 0.00-4.00 - ng/ mL L ab:Lipid Panel (Order Date - 03/25/2024) (Collection Date - 03/25/2024) Value Reference Range Triglycerides 99 <150 - mg/dL Cholesterol 182 <200 - mg/dL LDL Cholesterol Calculated 113 H <100 - mg/dL HDL Cholesterol 50 >40 - mg/dL * Examination: G eneral Examination: GENERAL APPEARANCE: w ell developed, well nourished, in no acute distress. HEAD: n ormocephalic, atraumatic. EYES: p upils equal, round, reactive to light and accommodation, sclera non-icteric. EARS: n ormal. ORAL CAVITY: m ucosa moist. THROAT: c lear. NECK/THYROID: n wu supple, full range of motion, no cervical lymphadenopathy, no bruits. SKIN: w arm and dry, no suspicious lesions. HEART: r egular rate and rhythm, S1, S2 normal, no murmurs.? LUNGS: c lear to auscultation bilaterally. ABDOMEN: s oft, nontender, nondistended, bowel sounds present, normal, no organomegaly , no masses palpable. RECTAL EXAM: d eclined. MALE GENITOURINARY: u ncircumcised , no penile lesions or discharge , no testicular mass , testes descended bilaterally. EXTREMITIES: n o clubbing, cyanosis, or edema. NEUROLOGIC: n onfocal, motor strength normal upper and lower extremities, sensory exam intact. Assessment: * Assessment: 1. H emorrhoids, external - K64.4 (Primary) 2 . S inus congestion - R09.81 3 . E ssential hypertension - I10 4 . R eflux esophagitis - K21.00 5 . P rostatism - N40.0 6 . D epression screening - Z13.31 Plan: * Treatment: 2. S inus congestion Notes: will get ct of sinuses/ MR LAY IS HAVING A CT SCAN THROUGH DR NAPOLES OFFICE 3. E ssential hypertension Notes: stable, will continue current regiment 4. R eflux esophagitis Notes: doing well, will continue current regiment 5. P rostatism Notes: stable, will continue current regiment 6. D epression screening Notes: negative screen 7. O thers Refill amLODIPine Besy-Benazepril HCl Capsule, 5-20 MG, take 1 capsule by mouth every day for 90 days, Orally, daily, 90 days, 90, Refills 3; R efill Celecoxib Capsule, 200 MG, take 1 capsule by mouth every day with food for 90 days, Orally, Once a day, 90 days, 90, Refills 3; R efill Tamsulosin HCl Capsule, 0.4 MG, TAKE 1 CAPSULE BY MOUTH EVERY DAY FOR 30 DAYS, 90, 90 Capsule, Refills 4; Refill Minocycline HCl Tablet, 100 MG, TAKE 1 TABLET BY MOUTH EVERY DAY FOR 90 DAYS, 90, 90 Tablet, Refills 3; R efill Lansoprazole Capsule Delayed Release, 15 MG, TAKE 1 CAPSULE BY MOUTH EVERY DAY FOR 90 DAYS, 90, 90 Capsule, Refills 3. * Procedure Codes: * Follow Up: 1 Year * * Sign off status: Completed true * Provider: Sudhir Delgadillo MD Date: 06/02/2023 Generated for Umer craig/Elaine/Misbah on: 05/29/2024 11:39 AM EST History and Physical Notes * HPI (History of Present Illness) Category Sub-Category Detail Notes Category Not es Symptom(s) patient is a 68 yo male here fo visit with review of recent labs and follow up of chronic issues, has pains all over in various joints./ is satisfactory with one celebrex and 2 tylenol Depression Screening PHQ-9 Little interest or pleasure in doing things: Not at all Feeling down, depressed, or hopeless: No t at all Trouble falling or staying asleep, or sl eeping too much: Not at all Feeling tired or having little energy: N ot at all Poor appetite or overeating: Not at all Feeling bad about yourself o r that you are a failure, or have let yourself or your family down: Not at all Trouble concentrating on thi ngs, such as reading the newspaper or watching television: Not at all Moving or speaking so slowly that other people could have noticed; or the opposite, being so fidgety or restless that you have been moving around a lot more than usual: Not at all Thoughts that you would be b kermit off or of hurting yourself in some way: Not at all Total Score: 0 Interpretation and Intervention Depression Geno decker Findings: Negative Follow-Up for Depression: : review of PH Q-9 found negative result, no follow-up needed SDOH Questions SDOH Questions In the past year have you been worried about losing housing?: No In the past year have you or any family members you live with been unable to get any of the following when it was really needed? Check all that apply:: None Fall Risk History Have you had any falls with injury i n the past year?: No Have you had two or more falls in the year?: No Communication Needs Communication Needs Does the patient have a hearing impairment: No Does the patient have a vision impairmen t?: Yes If yes, what is the vision impairment?: Glasses Does the patient have a cognition impair ment?: No Examination Category Sub-Category Detail Notes Category Not es General Examination GENERAL APPEARANCE: well dev eloped, well nourished, in no acute distress HEAD: normocephalic, atrau matic EYES: pupils equal, round, reactive to light and accommodation, sclera non-icteric EARS: normal THROAT: clear NECK/THYROID: neck supple, full ra nge of motion, no cervical lymphadenopathy, no bruits HEART: regular rate and rhy thm, S1, S2 normal, no murmurs LUNGS: clear to auscultatio n bilaterally ABDOMEN: soft, nontender, non distended, bowel sounds present, normal, no organomegaly , no masses palpable NEUROLOGIC: nonfocal, motor stre ngth normal upper and lower extremities, sensory exam intact SKIN: warm and dry, no rodo picious lesions EXTREMITIES: no clubbing, cyanosi s, or edema MALE GENITOURINARY: uncircumcised , no p enile lesions or discharge , no testicular mass , testes descended bilaterally RECTAL EXAM: declined ORAL CAVITY: mucosa moist
--- OUTSIDE RECORDS SUMMARY | 2024-04-06 08:15 | XMS_ITS ---
Author Organization Yaw Delgadillo MD Address [address] [place] [phone] Care Team Providers Care Director Software Quality Assurance Name Role Phone Yaw Delgadillo Primary Care Provider [phone] Encounters Encounter Location Date Provider Diagnosis Yaw Delgadillo MD [address] [place] [phone] 04/06/2024 Yaw Delgadillo Plan Of Treatment Next Appt Details Provider Name:Yaw rudd, 04/04/2025 01:00:00 PM, [address], Suite [facility], [place], [place], [phone], Progress Notes * Omer LAY ADOB:[birth year] (68 yo M)Acc No.[id number]:04/06/2024 Patient: Omer Crooks :1955 A ge:68 Y S ex:Male Address:[address] [place] [address], [id number] * true * Date: Generated for Umer craig/Elaine/Nabeelsmitting on: 05/29/2024 11:39 AM EST
--- OUTSIDE RECORDS SUMMARY | 2024-04-06 08:19 | XMS_ITS ---
Author Organization Yaw Delgadillo MD Address [address] [place] [phone] Care Team Providers Care Properties Supervisor Name Role Phone Yaw Delgadillo Primary Care Provider [phone] Encounters Encounter Location Date Provider Diagnosis Yaw Delgadillo MD [address] [facility] [address] [place] [address] [phone] 04/06/2024 Yaw Delgadillo Plan Of Treatment Next Appt Details Provider Name:Yaw rudd, 04/04/2025 01:00:00 PM, [address], Suite [facility], [place], [place], [phone], Progress Notes * Omer LAY ADOB:[birth year] (68 yo M)Acc No.[id number]:04/06/2024 Patient: Omer Crooks :1955 A ge:68 Y S ex:Male Address:[address] [place] [address], [address] * true * Date: Generated for Umer craig/Elaine/Nabeelsmitting on: 05/29/2024 11:39 AM EST
--- OUTSIDE RECORDS SUMMARY | 2024-04-06 08:20 | XMS_ITS ---
Author Organization Yaw Delgadillo MD Address [address] [place] [phone] Care Team Providers Care Take Out Waiter/Waitress Name Role Phone Yaw Delgadillo Primary Care Provider [phone] Medications Medication SIG (Take, Route, Frequency, Duration) Notes Start Date End Date Status Paxlovid (300/100) 20 x 150 MG & 10 x 100MG 3 tablets Orally Twice a day for 5 day(s) 04/06/2024 Active Encounters Encounter Location Date Provider Diagnosis Yaw Delgadillo MD [address] [place] [phone] 04/06/2024 aYw Delgadillo Plan Of Treatment Medication Medication Name Sig Start Date Stop Date Notes Paxlovid (300/100) 20 x 150 MG & 10 x 100MG 3 tablets Orally Twice a day for 5 day(s) 04/06/2024 Next Appt Details Provider Name:Yaw Roque ier, 04/04/2025 01:00:00 PM, [address] [facility], [address], [place], [place], [phone], Progress Notes * Omer LAY ADOB:[birth year] (68 yo M)Acc No.[id number]:04/06/2024 Patient: Omer Crooks :1955 A ge:68 Y S ex:Male Address:[address] [place] [address], [place], [address] * Refills Start Paxlovid (300/100) Tablet Therapy Pack, 20 x 150 MG & 10 x 100MG, Orally, 30, 3 tablets, Twice a day, 5 day(s) * true * Date: Generated for Umer craig/Elaine/Erinitting on: 05/29/2024 11:38 AM EST
--- OUTSIDE RECORDS SUMMARY | 2025-03-28 02:45 | XMS_ITS ---
Author Organization Yaw Delgadillo MD Address [address] [place] [phone] Care Team Providers Care Sheet Metal Worker Maintenance Name Role Phone Yaw Delgadillo Primary Care Provider REASON FOR VISIT FASTING LABS Encounters Encounter Location Date Provider Diagnosis Yaw Delgadillo MD [address] [place] [phone] 03/28/2025 Yaw Delgadillo Essential hypertension I10 and Prostatism N40.0 Assessments Encounter Date Diagnosis (ICD Code) Assessment Notes Treatment Notes Treatment Clinical Notes Section Notes 03/28/2025 Essential hypertension (ICD-10 - I10) 03/28/2025 Prostatism (ICD-10 - N40.0) Plan Of Treatment Pending Test Test Name Order Date Complete Blood Count Auto Diff 5 Comprehensive [place]. Panel Fast 5 Lipid Panel 03/28/2025 PSA,Total (Free>4and<10) 03/28/2025 UA ClnCatch+Micro w/rflx Cult 03/28/2025 Next Appt Details Provider Name:Yaw Roque ier, 04/04/2025 01:00:00 PM, [address] [facility], [address], [place], [place], [phone], Progress Notes * Omer LAY ADOB:[birth year] (69 yo M)Acc No.[id number]:03/28/2025 Progress Note Patient: Omer PINEDA Provider: Sudhir Delgadillo MD :1955 A ge:69 Y S ex:Male Date:03/28/2025 Address:[address] [place], [place] [phone] Subjective: * Chief Complaints: * 1 . FASTING LABS. * Medical History: Objective: * Vitals: Assessment: * Assessment: 1. E ssential hypertension - I10 (Primary) 2 . P rostatism - N40.0 ? Plan: * Treatment: 2. P rostatism L AB: Complete Blood Count Auto Diff L AB: Comprehensive [place]. Panel Fast L AB: Lipid Panel L AB: PSA,Total (Free>4and<10) L AB: UA ClnCatch+Micro w/rflx Cult * Procedure Codes: 3 6415 VENIPUNCT, ROUTINE* * * The named appointment provid er may or may not be the originator of this progress note, and it is not deemed complete until electronically signed by the appointment provider. Sign off status: Pending * Provider: Sudhir Delgadillo MD Date: 05/29/2024 Generated for Umer craig/Elaine/Erinitting on: 05/29/2024 11:38 AM EST
[2025-03-28 09:55] LABS: MANUAL DIFF FLAG NO
[2025-03-28 11:37] LABS: Appearance Urine Clear; Glucose Urine UA Negative (Negative); PH 6.5 (5.0-9.0); Specific Gravity - Urine <= 1.005 (1.005-1.025)
--- OUTSIDE RECORDS SUMMARY | 2025-03-28 11:39 | XMS_ITS | Patient Health Record ---
Author Organization Yaw Delgadillo MD Address [address] [place] [phone] Care Team Providers Care Desktop Architect Name Role Phone Yaw Delgadillo Primary Care Provider Allergies No Known Allergies Results Component Value Reference Range Notes CT sinus wo con Reviewed date:06/01/2024 02:40:10 PM Interpretation: Performing Lab: Notes/Report: [address] [address] [address] Scan Report Signed Patient: Omer Lay MR#: [id number] 017 : 1955 Acct:[id number] Age/Sex: 68 / M ADM Date: 05/31/24 Loc: HO.CT Attending Dr: Conrado Bennett Ordering Physician: Conrado Bennett Date of Service: 05/31/24 Procedure(s): CT sinus wo IV con Accession Number(s): [id number] cc: Yaw Delgadillo MD; Conrado Bennett Report Number: [id number]: Total DLP = 151.00 mGy-cm CLINICAL HISTORY: POLYP OF NASAL CAVITY CT sinus without IV contrast Comparison: None Findings: The paranasal sinuses are well developed. Mucoperiosteal thickening and small polyp along the roof of the right maxillary sinus No air-fluid levels. Ostiomeatal units widely patent. Sphenoethmoid, and frontal recesses are patent. No frank bullosa. No Madhavi cells. Nasal septum is minimally deviated to the right The planum sphenoidale, cribriform plate and the orbital almeida are intact. The orbital contents are unremarkable. The visualized mastoid air cells showed no effusion. Symmetric fat-containing parapharyngeal spaces. The limited view the intracranial contents are unremarkable. Temporomandibular joints are congruent. Impression: 1. Minimal mucoperiosteal thickening and small polyp roof of the right maxillary sinus. Minimal mucoperiosteal thickening of the ethmoid air cells. Remaining paranasal sinuses are clear. 2. Ostiomeatal complexes are patent. This document has been electronically signed by: Casey Aburto MD on 06/01/2024 13:02:48 Dictated By: Casey Aburto MD Signed By: <Electronically signed by Casey Aburto MD in [place]> 06/01/24 1303 DD/ 1302 TD/TT: 06/01/24 1302 Director [employer]: [place] [id number] CT Scan Report Signed Patient: Bree Lay rd MR#: [id number] 017 : 1955 Acct:[id number] Age/Sex: 68 / M ADM Date: 05/31/24 Loc: HO.CT Attending Dr: Conrado Bennett Ordering Physician: Conrado Bennett Date of Service: 05/31/24 Procedure(s): CT sinus wo IV con Accession Number(s): [id number] cc: Yaw Delgadillo MD; Conrado Bennett Report Number: [id number]: Total DLP = 151.00 mGy-cm CLINICAL HISTORY: PO LYP OF NASAL CAVITY CT sinus without IV contrast Comparison: None Findings: The paranasal sinuse s are well developed. Mucoperiosteal thickening and small polyp along th e roof of the right maxillary sinus No air-fluid levels. Ostiomeatal units widely patent. Sphenoethmoid, and f rontal recesses are patent. No frank bullosa. N o Madhavi cells. Nasal septum is mini tony deviated to the right The planum sphenoida le, cribriform plate and the orbital almeida are intact. The orbital contents are unremarkable. The visualized mastoid air cells showed no effusion. Symmetric fat-containing parapharyngeal spaces. The limited view the int racranial contents are unremarkable. Temporomandibular [place] ints are congruent. Impression: 1. Minimal mucoperio steal thickening and small polyp roof of the right maxillary sinus. Min imal mucoperiosteal thickening of the ethmoid air cells. Remaining par anasal sinuses are clear. 2. Ostiomeatal compl exes are patent. This document has be en electronically signed by: Casey Aburto MD on 06/01/2024 13:02:48 Dictated By: Casey Aburto MD Signed By: <[facility] signed by Casey Aburto MD in [place]> 06/01/24 1303 DD/ 1302 TD/TT: 06/01/24 1302 Director [employer]: Reason For Referral No Information Medications Medication [...] Comme nts Fluar[facility] 04/01/2017 Administered TDaP IM Intramuscular 04/12/2017 Administered [facility] [place]. Fluarix Quadrivalent Unknown 02/09[facility]2018 [facility] 02/08/2019 Administered [facility] Prevnar 13 Unknown 02/08/2019 Administered pt was given the vaccine at [facility] in [place] PPSV23 (Pnemovax) IM Intramuscular 04/10/2021 Administered SARS-COV-2 [...] Problem Status W/U Status Risk Notes Problem 44112626 Hematuria (R31.9) Active confirmed Problem 00581848 Prostatism (N40.0) Active confirmed Problem 885566060 Reflux esophagitis (K21.00) Active confirmed Problem 044827710 Low back pain (M54.5) Active confirmed Problem 905539014 Lumbar disc disease (M51.9) Active confirmed Problem 30397712 Essential hypertension (I10) Active confirmed Problem 08015357 Unilateral inguinal hernia without obstruction or gangrene, [...] Yaw Delgadillo MD [address] [place] [phone] 03/28/2025 Yaw Delgadillo Essential hypertension I10 and Prostatism N40.0 [address] [place] [address] [id number] 04/01/2024 Yaw Delgadillo Hemorrhoids, externa l K64.4 ; Sinus congestion R09.81 ; Essential hypertension I10 ; Reflux esophagitis K21.00 ; Prostatism N40.0 and Depression screening Z13.31 Yaw Delgadillo MD [address] [place] [address] [id number] 04/06/2024 Yaw Delgadillo MD [address] [place] [address] [id number] 04/06/2024 Yaw Delgadillo MD [address] [place] [address] [id number] 04/06/2024 Yaw Delgadillo Assessments Encounter Date Diagnosis (ICD Code) Assessment Notes Treatment Notes Treatment Clinical Notes Section Notes 03/28/2025 Essential hypertension (ICD-10 - I10) 04/01/2024 Hemorrhoids, external (ICD-10 - K64.4) 04/01/2024 Sinus congestion (ICD-10 - R09.81) will get ct of sinuses/ MR LAY IS HAVING A CT SCAN THROUGH DR [place] OFFICE 03/28/2025 Prostatism (ICD-10 - N40.0) 04/01/2024 Essential hypertension (ICD-10 - I10) stable, [...] (EKG) 04/01/2019 Complete Blood Count Auto Diff 5 Comprehensive [place]. Panel Fast 5 Lipid Panel 03/28/2025 PSA,Total (Free>4and<10) 03/28/2025 UA ClnCatch+Micro w/rflx Cult 03/28/2025 Next Appt Details Provider Name:Yaw Roque ier, 04/04/2025 01:00:00 PM, [address] [facility], [address], [place], [place], [phone], Insurance Providers Payer Name Payer Address Payer Phone Subscriber Number Group Number Insured Name Patient Relationship to Insured Coverage Start Date Coverage End Date MEDICARE [employer] [address] [place] [address] [id number] Omer Lay Self - patient is the insured [facility] [address] [place] [id number] Omer Lay Self - patient is the insured Medical (General) History Medical History History ICD Code discussed colonoscopy and refuses 2017, pt refused to do cologuard 03/2019 has trace hematuria since 2010 Surgical History Surgery Date(Month/Year) Repair of rt inguinal hernia with mesh ( Dr. Barrios) 03/2016
[2025-03-28 11:48] LABS: Hematocrit 43.5 % (42.0-52.0); Hemoglobin 14.3 g/dl (14.0-18.0); Imm Gran Abs Auto 0.02 X10*3/uL (0.00-0.03); Imm Gran Pct Auto 0.3 % (0.0-0.4); Lymphocytes Absolute Auto 1.3 X10*3/uL (1.2-4.9); Mean Corpuscular HGB Conc 32.9 g/dl (31.0-36.0); Mean Corpuscular Hemoglobin 29.7 pg (27.0-33.0); Mean Corpuscular Volume 90.2 fL (80.0-98.0); NRBC Abs Auto 0.000 X10*3/uL (0.0-0.012); NRBC Pct Auto 0.0 /100WBC (0.0-0.2); Platelet Count 191 X10*3/uL (160-400); Red Blood Count 4.82 X10*6/uL (4.60-5.80); White Blood Count 5.8 X10*3/uL (4.8-10.8)
[2025-03-28 11:52] LABS: Alanine Aminotransferase 24 U/L (0-40); Albumin Level 3.9 g/dL (3.5-5.0); Alkaline Phosphatase 74 U/L (39-117); Anion Gap 9 (12-20); Aspartate Amino Transferase 30 U/L (5-37); Blood Urea Nitrogen 22 mg/dL (9-16); Calcium 8.9 mg/dL (8.4-10.2); Carbon Dioxide 27 mmol/L (22-29); Chloride 106 mmol/L (96-108); Cholesterol 170 mg/dL (<200); Estimated Glomerular Filt Rate > 60; HDL Cholesterol 45 mg/dL (>40); Potassium 4.3 mmol/L (3.3-5.1); Sodium 138 mmol/L (135-145); Total Protein 6.5 g/dL (6.5-8.0); Triglycerides 108 mg/dL (<150)
[2025-03-28 12:07] LABS: PSA,Total (Free>4and<10) 1.05 ng/mL (0.00-4.00)
== END 2025-03-28 09:50 | disposition home or self-care (01) ==
LOC: HO.LNP 09:49
PROVIDERS: Visit Provider Internal Medicine
DX: I10 Essential (primary) hypertension (principal); N40.0 Benign prostatic hyperplasia without lower urinary tract symptoms; Z12.5 Encounter for screening for malignant neoplasm of prostate
CPT/HCPCS: 80053; 80061; 81001; 84153; 85025